=== PATIENT | female | born 1935 | race Caucasian/White ===

== ENCOUNTER 2017-02-02 20:15 | Outpatient (CLI) | payer MEDICARE, OTHER | END 2017-02-02 20:16 | disposition short-term general hospital (02) | LOC: EMS 20:15 | PROVIDERS: ATTEND Surgery | DX: R55 Syncope and collapse (principal); R42 Dizziness and giddiness; R20.2 Paresthesia of skin; S09.90XA Unspecified injury of head, initial encounter; W18.39XA Other fall on same level, initial encounter; Y92.009 Unspecified place in unspecified non-institutional (private) residence as the place of occurrence of the external cause | CPT/HCPCS: A0425; A0427 ==

== ENCOUNTER 2018-05-07 22:25 | Outpatient (CLI) | payer MEDICARE, OTHER | END 2018-05-07 22:26 | disposition short-term general hospital (02) | LOC: EMS 22:25 | PROVIDERS: ATTEND Surgery | DX: R07.9 Chest pain, unspecified (principal) | CPT/HCPCS: A0425; A0427 ==

== ENCOUNTER 2018-05-09 01:37 | Outpatient (CLI) | payer MEDICARE, OTHER | END 2018-05-09 01:38 | disposition critical access hospital (66) | LOC: EMS 01:37 | PROVIDERS: ATTEND Surgery | DX: R10.9 Unspecified abdominal pain (principal); M54.5 Low back pain; R11.0 Nausea | CPT/HCPCS: A0425; A0427 ==

== ENCOUNTER 2018-05-09 02:11 | Inpatient (IN) | payer MEDICARE, OTHER ==
[2018-05-09 03:03] LABS: BASOPHILS % (AUTO) 0.2 %; LYMPHOCYTES # (AUTO) 0.1 10^3/uL (1.5-3.5); MEAN CORPUSCULAR HEMOGLOBIN 31.6 pg (27.0-31.0); MEAN CORPUSCULAR HGB CONC 33.9 g/dL (32.0-36.0); MEAN CORPUSCULAR VOLUME 93.3 fL (81.0-99.0); MEAN PLATELET VOLUME 9.3 fL (7.9-10.8); MONOCYTES # (AUTO) 0.2 10^3/uL (0.0-1.0); MONOCYTES % (AUTO) 1.3 %; NEUTROPHILS # (AUTO) 13.4 10^3/uL (1.5-6.6); NEUTROPHILS % (AUTO) 97.5 %; PLT - PLATELET COUNT 189 10^3/uL (130-450); RED BLOOD COUNT 4.44 10^6/uL (4.20-5.40); RED CELL DISTRIBUTION WIDTH 13.3 % (12.0-15.0); WHITE BLOOD COUNT 13.7 x10^3/uL (4.8-10.8)
--- NOTE | 2018-05-09 03:08 | ED Physician Documentation ---
PD HPI ABD PAIN - Stated complaint Stated Complaint: ABD PAIN - Chief complaint Chief Complaint: Abd Pain - History obtained from History obtained from: Patient - History of Present Illness Timing - onset: How many days ago (2-3) Timing - duration: Days Timing - details: Abrupt onset, Waxing and waning Pain level max: 8 Pain level now: 2 Quality: Pain Location: RUQ, Epigastric Radiation: Upper back Improved by: Meds (fentanyl 50 mcg IV x 3 doses en route to ED, as well as zofran 4mg IV en route) Worsened by: Eating Associated symptoms: Nausea, Vomiting (vomiting developed after ED arrival). No: Fever, Diarrhea, Constipation, Dysuria Similar symptoms before: Work up / diagnostics (see below) Recently seen: Admitted - Additional information Additional information: Patient complains of epigastric pain for the past two or three days. She had not had this pain previously. The pain is distinctly worse with PO intake. Yesterday she was evaluated at [facility] in [place]. Per patients description, the evaluation was cardiac-oriented and included a treadmill stress test. The results were reportedly, per patient, unremarkable, and she was discharged earlier today. She says her pain was ongoing at time of d/c. tonight, she decided to try to eat a more substantial dinner then she had been (apprehensive due to increased pain with eating), and eating indeed again rapidly worsened her abdominal pain and called 911 for her severe pain. Dramatic improvement en route with meds by EMS as noted above Review of Systems Constitutional: reports: Reviewed and negative Eyes: reports: Reviewed and negative Ears: reports: Reviewed and negative Nose: reports: Reviewed and negative Throat: reports: Reviewed and negative Cardiac: reports: Reviewed and negative Respiratory: reports: Reviewed and negative GI: reports: Abdominal Pain, Nausea, Vomiting. denies: Constipation, Diarrhea : denies: Dysuria, Frequency Skin: reports: Reviewed and negative Musculoskeletal: reports: Reviewed and negative Neurologic: reports: Reviewed and negative PD PAST MEDICAL HISTORY - Past Medical History Past Medical History: Yes Cardiovascular: High cholesterol GI: GERD Other Past Medical History: Bladder CA, Skin CA - Past Surgical History Past Surgical History: Yes Ortho: Knee replacement - Present Medications Home Medications: Ambulatory Orders Medication Instructions Recorded Confirmed Calcium Carbonate [Calcium] 600 mg PO DAILY 05/09/18 05/09/18 Lovastatin 40 mg PO QPM 05/09/18 05/09/18 Multivitamin [Multiple Vitamins] 1 tab PO DAILY 05/09/18 05/09/18 - Allergies Allergies/Adverse Reactions: Allergies Allergy/AdvReac Type Severity Reaction Status Date / Time Penicillins Allergy Unknown Verified 05/09/18 02:23 epinephrine AdvReac Unknown Verified 05/09/18 02:23 lorazepam AdvReac Nausea Verified 05/09/18 02:23 meperidine AdvReac Nausea Verified 05/09/18 02:23 oxycodone AdvReac Nausea Verified 05/09/18 02:23 - Social History Does the pt smoke?: No Smoking Status: Never smoker Does the pt drink ETOH?: No Does the pt have substance abuse?: No - Immunizations Immunizations are current?: Yes - POLST Patient has POLST: No PD ED PE NORMAL - Vitals Vital signs reviewed: Yes - General General: Alert and oriented X 3, No acute distress, Well developed/nourished - HEENT HEENT: Moist mucous membranes - Cardiac Cardiac: RRR, No murmur - Respiratory Respiratory: No respiratory distress, Clear bilaterally - Abdomen Abdomen: Soft, Non distended, Other (TTP across upper abdomen, most pronounced epigastrium) - Derm Derm: Normal color, Warm and dry - Extremities Extremities: No edema Results - Vitals Vitals: Oxygen O2 Source Nasal cannula Oxygen Flow Rate 3 - Labs Labs: Laboratory Tests 05/09/18 05/09/18 05/09/18 02:56 02:56 03:48 WBC 13.7 H RBC 4.44 Hgb 14.0 Hct 41.4 MCV 93.3 MCH 31.6 H MCHC 33.9 RDW 13.3 Plt Count 189 MPV 9.3 Neut # (Auto) 13.4 H Lymph # (Auto) 0.1 L [place] # (Auto) 0.2 Eos # (Auto) 0.0 Baso # (Auto) 0.0 Absolute Nucleated RBC 0.01 Nucleated RBC % 0.1 Sodium 140 Potassium 3.3 L Chloride 104 Carbon Dioxide 23 Anion Gap 13.0 BUN 13 Creatinine 0.5 Estimated GFR (MDRD) 119 Glucose 159 H Calcium 8.7 Total Bilirubin 2.4 H AST 145 H ALT 86 H Alkaline Phosphatase 187 H Total Protein 7.0 Albumin 4.1 Globulin 2.9 Albumin/Globulin Ratio 1.4 Amylase 934 H* Lipase 1110 H Urine Color Urine Clarity Urine pH Ur Specific [place] Urine Protein Urine Glucose (UA) Urine Ketones Urine Occult Blood Urine Nitrite Urine Bilirubin Urine Urobilinogen Ur Leukocyte Esterase Urine RBC Urine WBC Ur Squamous Epith Cells Urine Bacteria Ur Microscopic Review Urine Culture Comments 05/09/18 05:40 WBC RBC Hgb Hct MCV MCH MCHC RDW Plt Count MPV Neut # (Auto) Lymph # (Auto) [place] # (Auto) Eos # (Auto) Baso # (Auto) Absolute Nucleated RBC Nucleated RBC % Sodium Potassium Chloride Carbon Dioxide Anion Gap BUN Creatinine Estimated GFR (MDRD) Glucose Calcium Total Bilirubin AST ALT Alkaline Phosphatase Total Protein Albumin Globulin Albumin/Globulin Ratio Amylase Lipase Urine Color YELLOW Urine Clarity CLEAR Urine pH 5.0 Ur Specific [place] 1.020 Urine Protein NEGATIVE Urine Glucose (UA) >=1000 H Urine Ketones 15 H Urine Occult Blood SMALL H Urine Nitrite NEGATIVE Urine Bilirubin NEGATIVE Urine Urobilinogen 0.2 (NORMAL) Ur Leukocyte Esterase NEGATIVE Urine RBC 6-10 H Urine WBC 0-3 Ur Squamous Epith Cells RARE Squamous Urine Bacteria None Seen Ur Microscopic Review INDICATED Urine Culture Comments NOT INDICATED - Rads (name of study) RUQ US Radiology: Prelim report reviewed, See rad report CT A/P Radiology: Prelim report reviewed, See rad report PD MEDICAL DECISION MAKING - ED course Complexity details: reviewed results, re-evaluated patient, considered differential, d/w patient, d/w family ED course: requested records multiple times from [place], but only received patient d/c instructions on first request and no further information faxed after two more requests for discharge summary or test results. D/W Dr. Caldera after US and blood tests; he requests CT A/P. After CT resulted, d/w Dr. Caldera, accepts to hospitalist service. Departure - Departure Disposition: 66 [facility] DC/Xfer Clinical Impression: Acute cholecystitis, Hyperbilirubinemia, Hypokalemia, Pancreatitis, gallstone Condition: Stable Discharge Date/Time: 05/09/18 07:09
[2018-05-09 03:25] LABS: ALBUMIN 4.1 g/dL (3.2-5.5); ALBUMIN/GLOBULIN RATIO 1.4 (1.0-2.2); BILIRUBIN,TOTAL 2.4 mg/dL (0.2-1.0); CALCIUM 8.7 mg/dL (8.5-10.3); CREATININE 0.5 mg/dL (0.4-1.0)
[2018-05-09] MEDS ORDERED: fentaNYL 100 MCG/2 ML VIAL IVP STA (03:41)
[2018-05-09] MEDS ORDERED: SODIUM CHLORIDE 0.9% 1,000 ML IV STA (03:41)
[2018-05-09] MEDS ORDERED: ONDANSETRON 4 MG/2 ML VIAL IVP STA ×2 (03:41→05:03)
--- NOTE | 2018-05-09 04:33 | Ultrasound Report ---
Reason: abd. pain Procedure Date: 05/09/2018 Accession Number: [id number] / [id number] Procedure: US - Abdomen Limited CPT Code: FULL RESULT: EXAM: ABDOMEN ULTRASOUND LIMITED, RUQ EXAM DATE: 05/09/2018 04:27 AM. CLINICAL HISTORY: Abd. pain. COMPARISON: None. TECHNIQUE: Real-time scanning was performed with static images obtained. FINDINGS: Liver: Normal in size and echotexture. 16.9 cm. Main portal vein flow: Hepatopetal. Gallbladder: Cholelithiasis is present. There is gallbladder wall thickening and positive sonographic Dunlap sign, compatible with acute cholecystitis. Biliary System: CBD measures 7 mm. No intrahepatic or extrahepatic ductal dilatation. Other: No right hydronephrosis. No free fluid. IMPRESSION: Cholelithiasis, with gallbladder wall thickening and localized tenderness, compatible with acute cholecystitis. RADIA
[2018-05-09] MEDS ORDERED: IOPAMIDOL-300 100 ML VIAL ONE (05:03)
[2018-05-09] MEDS ORDERED: MORPHINE 2 MG/ML CARPUJECT IVP STA (05:03)
[2018-05-09] MEDS ORDERED: IOPAMIDOL-300 100 ML VIAL IVP ONE (05:29)
--- NOTE | 2018-05-09 05:57 | CT Report ---
Reason: cholecystitis, abnormal LFTs/amylase/lipase Procedure Date: 05/09/2018 Accession Number: [id number] / [id number] Procedure: CT - Abdomen/Pelvis W/ CPT Code: FULL RESULT: EXAM: CT ABDOMEN AND PELVIS EXAM DATE: 05/09/2018 05:41 AM. CLINICAL HISTORY: Cholecystitis, abnormal LFTs/amylase/lipase. COMPARISONS: Ultrasound same day. TECHNIQUE: Routine helical CT imaging was performed through the abdomen and pelvis. IV contrast: ISOVUE 300 100mL. Enteric contrast: No. Reconstructions: Coronal and sagittal. In accordance with CT protocol optimization, one or more of the following dose reduction techniques were utilized for this exam: automated exposure control, adjustment of mA and/or KV based on patient size, or use of iterative reconstructive technique. FINDINGS: Lung Bases: Bibasilar atelectasis. Liver: Normal. No masses. Gallbladder/Bile Ducts: Para cholecystic inflammation, compatible with acute cholecystitis. Cholelithiasis. Spleen: Normal. Pancreas: Normal. Adrenal Glands: Normal. Kidneys: Parapelvic cysts. No hydronephrosis or nephrolithiasis. Peritoneal Cavity/Bowel: Normal. No free fluid, free air or adenopathy. No masses or acute inflammatory process. Pelvic Organs: Normal. The bladder and visualized pelvic organs are within normal limits. Vasculature: No aneurysms or other significant abnormality. Bones: No significant abnormality. Other: Small left inguinal hernia, containing a nonobstructed loop of bowel. Small right inguinal hernia, containing fat. IMPRESSION: Para cholecystic inflammation and cholelithiasis, compatible with acute cholecystitis. Bilateral inguinal hernias, the left containing a nonobstructed loop of bowel, and the right containing fat. RADIA
[2018-05-09 06:00] LABS: BILIRUBIN,URINE NEGATIVE (NEGATIVE); GLUCOSE, URINE (UA) >=1000 mg/dL (NEGATIVE); KETONES,URINE (UA) 15 mg/dL (NEGATIVE); LEUKOCYTE ESTERASE, URINE NEGATIVE (NEGATIVE); NITRITE,URINE NEGATIVE (NEGATIVE); OCCULT BLOOD,URINE SMALL (NEGATIVE); PROTEIN,URINE NEGATIVE (NEGATIVE); UROBILINOGEN,URINE 0.2 (NORMAL) E.U./dL (NORMAL)
[2018-05-09 06:02] LABS: CLARITY,URINE CLEAR (CLEAR)
[2018-05-09 06:07] LABS: BACTERIA,URINE None Seen /HPF (None Seen); SQUAMOUS EPITHELIAL CELL,UR RARE Squamous (<= Few)
[2018-05-09] MEDS ORDERED: PROMETHAZINE 25 MG/1 ML VIAL IM PRN (06:10)
[2018-05-09] MEDS ORDERED: ZOLPIDEM 5 MG TABLET PO PRN (06:10)
[2018-05-09] MEDS ORDERED: oxyCODONE 5 MG TABLET PO PRN ×2 (06:10)
[2018-05-09] MEDS ORDERED: ACETAMINOPHEN 325 MG TABLET PO PRN (06:10)
[2018-05-09] MEDS ORDERED: MORPHINE 2 MG/ML CARPUJECT IVP PRN ×2 (06:10→11:41)
--- NOTE | 2018-05-09 06:19 | HISTORY & PHYSICAL EXAMINATION ---
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 The patient states that her abdominal pain started about 3-4 days ago. She states that initially she was having epigastric abdominal pain that would be episodic and resolved on its own. She noted that it did occur after meals. She states that the pain then became constant and severe on Wednesday evening. At that time she states that she went to the emergency department at [facility]. She states that she was placed in observation overnight and had a full cardiac workup. She had a stress test and workup was negative. Despite the workup being negative she continued to have abdominal pain and states that she was having nausea and decreased appetite. She states that her son asked for them to do a scan of her abdomen but she was discharged later in the evening without any further testing. The patient states that upon returning home she continued to have severe abdominal pain. She states the pain was located in her epigastric area of the abdomen and radiated down into the both her right and left lower quadrant as well as to her back. She states that she continued to feel nauseated and has not eaten all day. She states finally she could not take the pain any longer and return to our emergency department here at [facility] early this morning. The patient also admits to chills but denies any fevers. She states that the pain became especially worse when she tried to eat earlier yesterday afternoon. She states the pain is a 10 out of 10 and constant. She describes it as a sharp pain. She states that nothing has made it better except for pain medication in the emergency department and even that only last for a short jessica od of time. Patient denies any headaches, blurred vision, runny nose, sore throat, nasal congestion, difficult to swallowing, chest pain, shortness of air, orthopnea, PND, cough, increased lower extremity swelling, diarrhea, constipation, urinary urgency, urinary frequency, dysuria, joint pain, joint swelling, neck stiffness, recent unintentional weight loss, polyuria, polydipsia, skin changes, skin rash, dizziness, lightheadedness, night sweats or any focal neurologic deficits. On presentation to the emergency department the patient was in a fair amount of distress as she was writhing in pain. She was tachycardic with a heart rate of 108 and hypertensive with a blood pressure of 165/78. She was afebrile. She was brought in by ambulance and was given fentanyl in route. Despite the fe ntanyl she continued to have pain when she presented to the emergency department and received additional doses of fentanyl and IV morphine. The patient's pain improved however the pain returned quickly after the medication was given. The patient underwent routine lab work which did reveal a leukocytosis of 13.7, hypokalemia with a potassium of 3.3, hyperglycemia with a blood glucose of 159, elevated total bilirubin with a bilirubin of 2.4, elevated AST, ALT and alk phos as well as an elevated amylase of 934 and lipase of 1110. The patient underwent a abdominal ultrasound which revealed cholelithiasis, with gallbladder wall thickening and localized tenderness compatible with acute cholecystitis. There was no evidence of common bile duct dilation. The patient then underwent a CT of her abdomen and pelvis which revealed pericholecystic inflammation and cholelithiasis compatible with acute cholecystitis but again no evidence of choledocholithiasis. The patient was admitted to the medical arceo for acute cholecystitis and gallstone pancreatitis. Cultures were obtained in the emergen cy department and patient is being started on IV antibiotics, IV fluids and will be made n.p.o. until she has a surgical consult. MRCP has also been ordered. History - Past Medical History Cardiovascular: reports: High cholesterol GI: reports: GERD MRSA Hx?: No Other Past Medical History: Bladder CA, Skin CA - Past Surgical History Ortho: reports: Knee replacement - Family & Social History Family History: Mother: (Mother and father were healthy and of old age. Father at 91 mother at 94), Father: , Sister: Cancer (Sister with lung cancer, son with non-Hodgkin's lymphoma and prostate cancer), Other family: Cancer, Diabetes, Type 2 (Son with diabetes) Living arrangement: At home Living Situation: With spouse/s.o. Social History Notes: The patient lives with her whom she is been to for 59 years in [place], [place]. The couple has been living on [facility] for 40 years. Her was a high school head coach in [place] until they moved to [facility] [place] to take care of her 's father. They have lived here ever since. She has 3 kids all boys. Her retired from the construction business. She has never smoked, she does not drink alcohol and denies any illicit drug use. - POLST Patient has POLST: No POLST Status: Full Code Meds/Allgy - Allergies Allergies/Adverse Reactions: Allergies Allergy/AdvReac Type Severity Reaction Status Date / Time Penicillins Allergy Unknown Verified 05/09/18 02:23 epinephrine AdvReac Unknown Verified 05/09/18 02:23 lorazepam AdvReac Nausea Verified 05/09/18 02:23 meperidine AdvReac Nausea Verified 05/09/18 02:23 oxycodone AdvReac Nausea Verified 05/09/18 02:23 Review of Systems - Other Findings Other Findings: A comprehensive review of systems was performed the pertinent positives and negatives are stated above in the HPI and the remainder of the review of systems is negative. Prior Level of Functionality: Completely independent with her activities of daily living. Exam - Vital Signs Reviewed Vital Signs: Yes Vital Signs: Vital Signs x48h Temp Pulse Resp BP Pulse Ox 05/09/18 04:29 110 H 135/67 H 95 05/09/18 02:13 37.3 C 108 H 16 165/78 H 92 - Physical Exam General Appearance: positive: Alert, Mild distress (Secondary to abdominal pain despite pain medication) Eyes Bilateral: positive: Normal inspection, PERRL, EOMI, No lid inflammation, Conjunctivae nml, No scleral icterus ENT: positive: ENT inspection nml, Pharynx nml, Dry mucous membranes. negative: Purulent nasal drainage, Pharyngeal erythema, Oral lesions Neck: positive: Nml inspection, Thyroid nml, No JVD, Trachea midline. negative: Thyromegaly, Lymphadenopathy (R), Lymphadenopathy (L), Stiff neck, Carotid bruit, Tracheal deviation Respiratory: positive: Chest non-tender, No respiratory distress, Breath sounds nml. negative: Wheezes, Rales, Rhonchi Cardiovascular: positive: Regular rate & rhythm, No murmur, No gallop Peripheral Pulses: positive: 2+ Abdomen: positive: No organomegaly, Nml bowel sounds, No distention, Tenderness (Diffuse tenderness significantly worse in the RUQ, without guarding or rebound, soft abd non distended). negative: Rebound, Hepatomegaly Back: positive: Nml inspection. negative: CVA tenderness (R), CVA tenderness (L) Skin: positive: Color nml, No rash, Warm, Dry. negative: Cyanosis, Diaphoresis, Pallor, Skin rash Extremities: positive: Non-tender, Full ROM, Nml appearance, No pedal edema Neurologic/Psychiatric: positive: Oriented x3, CN's nml (2-12), Motor nml, Sensation nml, Mood/affect nml Conclusion/Plan - Problem List (1) Acute cholecystitis Conclusion/Plan: The patient presented with abdominal pain in the epigastric area. She did have positive Dunlap sign. The ultrasound showed cholecystitis with gallstones. Lab work revealed pancreatitis and elevated bilirubin. CT and ultrasound of the abdomen did not reveal any common bile duct dilation. Patient being admitted for treatment of acute cholecystitis and pancreatitis. Bel[place] Plan: IV fluids IV antibiotics with ciprofloxacin and Flagyl N.p.o. IV Dilaudid for pain control IV Zofran for nausea control Surgical consult for likely cholecystectomy once pancreatitis improves. (2) Pancreatitis, gallstone Conclusion/Plan: Patient presented with abdominal pain with radiation to the back. Occurring for 4 days. She was hospitalized at [facility] and worked up for possible acute coronary syndrome with a stress test which was negative. She was discharged without any abdominal imaging. Imaging here shows: Acute cholecystitis with gallstones. The patient's lab work reveals elevated lipase and amylase suggesting pancreatitis. Given the patient's gallstones and ongoing acute cholecystitis it is very likely that the patient has gallstone pancreatitis. The ultrasound and CT do not show any common bile duct dilation or evidence of a bile common bile duct stone. Plan: N.p.o. IV fluids Surgical consult Monitor lipase and amylase Pain control Nausea control (3) Hyperbilirubinemia Conclusion/Plan: Patient presented with acute cholecystitis and pancreatitis also has elevated bilirubin and LFTs. CT and abdominal ultrasound do not show any common bile duct dilation or stone. Plan: MRCP Monitor LFTs (4) Hypokalemia Conclusion/Plan: Patient presented with acute cholecystitis and was found to have a potassium of 3.3. Patient will be given potassium replacement while she is hospitalized and will continue to monitor her potassium. (5) Hyperlipidemia Conclusion/Plan: Patient has a history of hyperlipidemia. We will check lipid profile and make sure she does not have hypertriglyceridemia given her pancreatitis. She will be n.p.o. and restarted on her statin after surgery. Qualifiers: Hyperlipidemia type: unspecified Qualified Code(s): E78.5 - Hyperlipidemia, unspecified (6) Hyperglycemia Conclusion/Plan: Patient had mild hyperglycemia on presentation with a blood glucose of 159. Patient does not have any history of diabetes. Likely her glucose is elevated due to stress response from ongoing infection and pancreatitis. We will check hemoglobin A1c and continue to monitor her glucose daily. - Lab Results Lab results reviewed: Yes Fish Bones: 05/09/18 02:56 05/09/18 02:56 Other Lab Results: Laboratory Results WBC 13.7 x10^3/uL (4.8-10.8) H 05/09/18 02:56 RBC 4.44 10^6/uL (4.20-5.40) 05/09/18 02:56 Hgb 14.0 g/dL (12.0-16.0) 05/09/18 02:56 Hct 41.4 % (37.0-47.0) 05/09/18 02:56 MCV 93.3 fL (81.0-99.0) 05/09/18 02:56 MCH 31.6 pg (27.0-31.0) H 05/09/18 02:56 MCHC 33.9 g/dL (32.0-36.0) 05/09/18 02:56 RDW 13.3 % (12.0-15.0) 05/09/18 02:56 Plt Count 189 10^3/uL (130-450) 05/09/18 02:56 MPV 9.3 fL (7.9-10.8) 05/09/18 02:56 Neut # (Auto) 13.4 10^3/uL (1.5-6.6) H 05/09/18 02:56 Lymph # (Auto) 0.1 10^3/uL (1.5-3.5) L 05/09/18 02:56 [place] # (Auto) 0.2 10^3/uL (0.0-1.0) 05/09/18 02:56 Eos # (Auto) 0.0 10^3/uL (0.0-0.7) 05/09/18 02:56 Baso # (Auto) 0.0 10^3/uL (0.0-0.1) 05/09/18 02:56 Absolute Nucleated RBC 0.01 x10^3/uL 05/09/18 02:56 Nucleated RBC % 0.1 /100WBC 05/09/18 02:56 Sodium 140 mmol/L (135-145) 05/09/18 02:56 Potassium 3.3 mmol/L (3.5-5.0) L 05/09/18 02:56 Chloride 104 mmol/L (101-111) 05/09/18 02:56 Carbon Dioxide 23 mmol/L (21-32) 05/09/18 02:56 Anion Gap 13.0 (6-13) 05/09/18 02:56 BUN 13 mg/dL (6-20) 05/09/18 02:56 Creatinine 0.5 mg/dL (0.4-1.0) 05/09/18 02:56 Estimated GFR (MDRD) 119 (>89) 05/09/18 02:56 Glucose 159 mg/dL (70-100) H 05/09/18 02:56 Calcium 8.7 mg/dL (8.5-10.3) 05/09/18 02:56 Total Bilirubin 2.4 mg/dL (0.2-1.0) H 05/09/18 02:56 AST 145 IU/L (10-42) H 05/09/18 02:56 ALT 86 IU/L (10-60) H 05/09/18 02:56 Alkaline Phosphatase 187 IU/L (42-121) H 05/09/18 02:56 Total Protein 7.0 g/dL (6.7-8.2) 05/09/18 02:56 Albumin 4.1 g/dL (3.2-5.5) 05/09/18 02:56 Globulin 2.9 g/dL (2.1-4.2) 05/09/18 02:56 Albumin/Globulin Ratio 1.4 (1.0-2.2) 05/09/18 02:56 Amylase 934 U/L (28-100) H* 05/09/18 03:48 Lipase 1110 U/L (22-51) H 05/09/18 02:56 Urine Color YELLOW 05/09/18 05:40 Urine Clarity CLEAR (CLEAR) 05/09/18 05:40 Urine pH 5.0 PH (5.0-7.5) 05/09/18 05:40 Ur Specific [place] 1.020 (1.002-1.030) 05/09/18 05:40 Urine Protein NEGATIVE mg/dL (NEGATIVE) 05/09/18 05:40 Urine Glucose (UA) >=1000 mg/dL (NEGATIVE) H 05/09/18 05:40 Urine Ketones 15 mg/dL (NEGATIVE) H 05/09/18 05:40 Urine Occult Blood SMALL (NEGATIVE) H 05/09/18 05:40 Urine Nitrite NEGATIVE (NEGATIVE) 05/09/18 05:40 Urine Bilirubin NEGATIVE (NEGATIVE) 05/09/18 05:40 Urine Urobilinogen 0.2 (NORMAL) E.U./dL (NORMAL) 05/09/18 05:40 Ur Leukocyte Esterase NEGATIVE (NEGATIVE) 05/09/18 05:40 Urine RBC 6-10 /HPF (0-5) H 05/09/18 05:40 Urine WBC 0-3 /HPF (0-5) 05/09/18 05:40 Ur Squamous Epith Cells RARE Squamous (<= Few) 05/09/18 05:40 Urine Bacteria None Seen /HPF (None Seen) 05/09/18 05:40 Ur Microscopic Review INDICATED 05/09/18 05:40 Urine Culture Comments NOT INDICATED 05/09/18 05:40 - Diagnostic Imaging Results Diagnostic Imaging Results: positive: Final report reviewed Diagnostic Imaging Results Comments: EXAM: [id number] US/ABDLTD ([id number]) Reason: abd. pain Procedure Date: 05/09/2018 Accession Number: [id number] / [id number] Procedure: US - Abdomen Limited CPT Code: FULL RESULT: EXAM: ABDOMEN ULTRASOUND LIMITED, RUQ EXAM DATE: 05/09/2018 04:27 AM. CLINICAL HISTORY: Abd. pain. COMPARISON: None. TECHNIQUE: Real-time scanning was performed with static images obtained. FINDINGS: Liver: Normal in size and echotexture. 16.9 cm. Main portal vein flow: Hepatopetal. Gallbladder: Cholelithiasis is present. There is gallbladder wall thickening and positive sonographic Dunlap sign, compatible with acute cholecystitis. Biliary System: CBD measures 7 mm. No intrahepatic or extrahepatic ductal dilatation. Other: No right hydronephrosis. No free fluid. IMPRESSION: Cholelithiasis, with gallbladder wall thickening and localized tenderness, compatible with acute cholecystitis. CT abdomen/pelvis Impression: Pericholecystic inflammation and cholelithiasis, compatible with acute cholecystitis. Bilateral inguinal hernias, the left containing a nonobstructed loop of bowel, and the right containing fat. - EKG Results EKG Interpreted Independently: Yes Core Measures - Anticipated LOS I expect patient to be DC'd or transferred within 96 hours.: Yes - DVT/VTE - Prophylaxis VTE/DVT Prophylaxis med ordered at admit?: Yes
[2018-05-09] MEDS ORDERED: CIPROFLOXACIN 400 MG/200 ML 200 ML IV SCH (07:00)
[2018-05-09] MEDS: HYDROmorphone 1 MG/ML CARPUJECT IVP PRN ×2 (08:08→10:39)
[2018-05-09] MEDS: NS W/20 MEQ KCL 1,000 ML IV SCH ×2 (08:22→19:23)
[2018-05-09] MEDS: metroNIDAZOLE 500 MG/100 ML 500 MG/100 ML BAG IV SCH ×3 (08:22→22:54)
[2018-05-09] MEDS: SODIUM CHLORIDE FLUSH 0.9% 10 ML SYRINGE IVP SCH ×3 (08:29→23:17)
[2018-05-09] MEDS: POLYETHYLENE GLYCOL 3350 17 GM PACKET PO SCH (08:29)
[2018-05-09] MEDS: ENOXAPARIN 40 MG/0.4 ML SYRINGE SUBQ SCH (09:36)
[2018-05-09] MEDS: FAMOTIDINE 20 MG/50 ML 50 ML IV SCH ×2 (09:40→20:09)
[2018-05-09] MEDS: CIPROFLOXACIN 400 MG/200 ML 200 ML IV SCH ×2 (10:24→21:38)
[2018-05-09] MEDS: ONDANSETRON 4 MG/2 ML VIAL IVP PRN (10:39)
[2018-05-09] MEDS: PROCHLORPERAZINE 10 MG/2 ML VIAL IVP PRN (12:49)
[2018-05-09] MEDS: SODIUM CHLORIDE FLUSH 0.9% 10 ML SYRINGE IVP PRN (12:50)
--- NOTE | 2018-05-09 12:52 | PROVIDER PROGRESS NOTE ---
Subjective - Prog Note Date Prog Note Date: 05/09/18 - Subjective Pt reports feeling: Improved Subjective: pt report her pain is most controlled by medication, she report mild nausea but no vomiting. She denies fever, chill, chest pain, shortness of breath. Current Medications - Current Medications Current Medications: Active Medications Acetaminophen (Tylenol) 650 mg PO Q4HR PRN PRN Reason: Pain 1 to 4 Enoxaparin Sodium (Lovenox) 40 mg SUBQ DAILY [facility] Last Admin: 05/09/18 09:36 Dose: Not Given Famotidine (Pepcid 20 Mg/50 Ml) 50 mls @ 100 mls/hr IV BID [facility] Last Infusion: 05/09/18 10:10 Dose: Infused Metronidazole (Flagyl 500 Mg/100 Ml) 500 mg in 100 mls @ 100 mls/hr IV Q8H [facility] Last Infusion: 05/09/18 09:22 Dose: Infused Potassium Chloride/Sodium Chloride (Normal Saline 0.9% W/20 Meq Kcl) 1,000 mls @ 150 mls/hr IV .Q6H40M [facility] Stop: 05/09/18 20:19 Last Infusion: 05/09/18 10:21 Dose: 0 mls/hr Ciprofloxacin (Cipro 400 Mg/200 Ml) 200 mls @ 200 mls/hr IV Q12H [facility] Last Infusion: 05/09/18 12:34 Dose: 200 mls/hr Morphine Sulfate (Morphine (Carpuject)) 2 mg IVP Q2HR PRN PRN Reason: PAIN Ondansetron HCl (Zofran Inj) 4 mg IVP Q6HR PRN PRN Reason: Nausea / Vomiting Last Admin: 05/09/18 10:39 Dose: 4 mg Polyethylene Glycol (Miralax) 17 gm PO DAILY [facility] Last Admin: 05/09/18 08:29 Dose: Not Given Prochlorperazine Edisylate (Compazine Inj) 10 mg IVP Q6HR PRN PRN Reason: Nausea / Vomiting Last Admin: 05/09/18 12:49 Dose: 10 mg Promethazine HCl (Phenergan Inj) 25 mg IM Q6HR PRN PRN Reason: Nausea / Vomiting Sodium Chloride (Normal Saline Flush 0.9%) 10 ml IVP PRN PRN PRN Reason: NEEDED PER PROVIDER ORDERS Last Admin: 05/09/18 12:50 Dose: 10 ml Sodium Chloride (Normal Saline Flush 0.9%) 10 ml IVP 0100,0900,1700 [facility] Last Admin: 05/09/18 08:29 Dose: Not Given Zolpidem Tartrate (Ambien) 5 mg PO QPM PRN PRN Reason: Insomnia Objective - Vital Signs/Intake & Output Reviewed Vital Signs: Yes Vital Signs: Vital Signs x48h Temp Pulse Pulse Resp BP BP Pulse Ox 05/09/18 07:27 37.1 C 108 H 20 134/96 H 97 05/09/18 06:44 36.4 C L 111 H 17 142/73 H 92 Intake & Output: Intake & Output 05/07/18 05/08/18 05/08/18 05/09/18 00:59 00:59 23:59 23:59 Intake Total 1131.667 Balance 1131.667 - Objective General Appearance: positive: No acute distress, Alert. negative: Lethargic Eyes Bilateral: positive: Normal inspection, PERRL, No lid inflammation, Conjunctivae nml ENT: positive: ENT inspection nml, Pharynx nml, No signs of dehydration. negative: Purulent nasal drainage, Pharyngeal erythema, Oral lesions Neck: positive: Nml inspection, Thyroid nml, No JVD, Trachea midline. negative: Thyromegaly, Lymphadenopathy (R), Lymphadenopathy (L), Stiff neck, Swelling/bruising, Tracheal deviation Respiratory: positive: Chest non-tender, No respiratory distress, Breath sounds nml. negative: Wheezes, Rales, Rhonchi Cardiovascular: positive: Regular rate & rhythm, No murmur, No gallop. negative: Irregularly irregular, Extrasystoles, Tachycardia, Bradycardia, JVD present, Systolic murmur, Diastolic murmur Peripheral Pulses: 2+ Radial (R), 2+ Radial (L), 2+ Dorsalis pedis (R), 2+ Dorsalis pedis (L) Abdomen: positive: No organomegaly, Nml bowel sounds, No distention, Tenderness. negative: Guarding, Rebound Back: positive: Nml inspection. negative: CVA tenderness (R), CVA tenderness (L) Skin: positive: Color nml, No rash, Warm, Dry. negative: Cyanosis, Diaphoresis, Pallor Extremities: positive: Non-tender, Full ROM, Nml appearance. negative: Calf t enderness, Joint swelling, Andrew's sign/cords Neurologic/Psychiatric: positive: Oriented x3, Motor nml, Sensation nml, Mood/affect nml. negative: Weakness, Sensory loss, Facial droop, Slurred/abnml speech, Depressed mood/affect - Lab Results Fish Bones: 05/09/18 02:56 05/09/18 02:56 Other Labs: Lab Results x24hrs 05/09/18 05/09/18 05/09/18 Range/Units 05:40 03:48 02:56 WBC (4.8-10.8) x10^3/uL RBC (4.20-5.40) 10^6/uL Hgb (12.0-16.0) g/dL Hct (37.0-47.0) % MCV (81.0-99.0) fL MCH (27.0-31.0) pg MCHC (32.0-36.0) g/dL RDW (12.0-15.0) % Plt Count (130-450) 10^3/uL MPV (7.9-10.8) fL Neut # (Auto) (1.5-6.6) 10^3/uL Lymph # (Auto) (1.5-3.5) 10^3/uL [place] # (Auto) (0.0-1.0) 10^3/uL Eos # (Auto) (0.0-0.7) 10^3/uL Baso # (Auto) (0.0-0.1) 10^3/uL Absolute Nucleated RBC x10^3/uL Nucleated RBC % /100WBC Sodium 140 (135-145) mmol/L Potassium 3.3 L (3.5-5.0) mmol/L Chloride 104 (101-111) mmol/L Carbon Dioxide 23 (21-32) mmol/L Anion Gap 13.0 (6-13) BUN 13 (6-20) mg/dL Creatinine 0.5 (0.4-1.0) mg/dL Estimated GFR (MDRD) 119 (>89) Glucose 159 H (70-100) mg/dL Calcium 8.7 (8.5-10.3) mg/dL Total Bilirubin 2.4 H (0.2-1.0) mg/dL AST 145 H (10-42) IU/L ALT 86 H (10-60) IU/L Alkaline Phosphatase 187 H (42-121) IU/L Total Protein 7.0 (6.7-8.2) g/dL Albumin 4.1 (3.2-5.5) g/dL Globulin 2.9 (2.1-4.2) g/dL Albumin/Globulin Ratio 1.4 (1.0-2.2) Amylase 934 H* (28-100) U/L Lipase 1110 H (22-51) U/L Urine Color YELLOW Urine Clarity CLEAR (CLEAR) Urine pH 5.0 (5.0-7.5) PH Ur Specific [place] 1.020 (1.002-1.030) Urine Protein NEGATIVE (NEGATIVE) mg/dL Urine Glucose (UA) >=1000 H (NEGATIVE) mg/dL Urine Ketones 15 H (NEGATIVE) mg/dL Urine Occult Blood SMALL H (NEGATIVE) Urine Nitrite NEGATIVE (NEGATIVE) Urine Bilirubin NEGATIVE (NEGATIVE) Urine Urobilinogen 0.2 (NORMAL) (NORMAL) E.U./dL Ur Leukocyte Esterase NEGATIVE (NEGATIVE) Urine RBC 6-10 H (0-5) /HPF Urine WBC 0-3 (0-5) /HPF Ur Squamous Epith Cells RARE Squamous (<= Few) Urine Bacteria None Seen (None Seen) /HPF Ur Microscopic Review INDICATED Urine Culture Comments NOT INDICATED 05/09/18 Range/Units 02:56 WBC 13.7 H (4.8-10.8) x10^3/uL RBC 4.44 (4.20-5.40) 10^6/uL Hgb 14.0 (12.0-16.0) g/dL Hct 41.4 (37.0-47.0) % MCV 93.3 (81.0-99.0) fL MCH 31.6 H (27.0-31.0) pg MCHC 33.9 (32.0-36.0) g/dL RDW 13.3 (12.0-15.0) % Plt Count 189 (130-450) 10^3/uL MPV 9.3 (7.9-10.8) fL Neut # (Auto) 13.4 H (1.5-6.6) 10^3/uL Lymph # (Auto) 0.1 L (1.5-3.5) 10^3/uL [place] # (Auto) 0.2 (0.0-1.0) 10^3/uL Eos # (Auto) 0.0 (0.0-0.7) 10^3/uL Baso # (Auto) 0.0 (0.0-0.1) 10^3/uL Absolute Nucleated RBC 0.01 x10^3/uL Nucleated RBC % 0.1 /100WBC Sodium (135-145) mmol/L Potassium (3.5-5.0) mmol/L Chloride (101-111) mmol/L Carbon Dioxide (21-32) mmol/L Anion Gap (6-13) BUN (6-20) mg/dL Creatinine (0.4-1.0) mg/dL Estimated GFR (MDRD) (>89) Glucose (70-100) mg/dL Calcium (8.5-10.3) mg/dL Total Bilirubin (0.2-1.0) mg/dL AST (10-42) IU/L ALT (10-60) IU/L Alkaline Phosphatase (42-121) IU/L Total Protein (6.7-8.2) g/dL Albumin (3.2-5.5) g/dL Globulin (2.1-4.2) g/dL Albumin/Globulin Ratio (1.0-2.2) Amylase (28-100) U/L Lipase (22-51) U/L Urine Color Urine Clarity (CLEAR) Urine pH (5.0-7.5) PH Ur Specific [place] (1.002-1.030) Urine Protein (NEGATIVE) mg/dL Urine Glucose (UA) (NEGATIVE) mg/dL Urine Ketones (NEGATIVE) mg/dL Urine Occult Blood (NEGATIVE) Urine Nitrite (NEGATIVE) Urine Bilirubin (NEGATIVE) Urine Urobilinogen (NORMAL) E.U./dL Ur Leukocyte Esterase (NEGATIVE) Urine RBC (0-5) /HPF Urine WBC (0-5) /HPF Ur Squamous Epith Cells (<= Few) Urine Bacteria (None Seen) /HPF Ur Microscopic Review Urine Culture Comments ABX Reporting Has patient been on IV antibiotics over the past 48 hours?: Yes Assessment/Plan - Problem List (1) Acute cholecystitis Impression: (1) Acute cholecystitis pt report her pain most controlled will followup surgeon continue IV fluids, antibiotics with ciprofloxacin and Flagyl N.p.o. IV Morphine for pain control, pt complaint nausea for Dilaudid continue IV Zofran for nausea control (2) Pancreatitis, gallstone Conclusion/Plan: continue N.p.o., IV fluids Surgical consult, follow up continue Monitor lipase and amylase continue Pain control continue Nausea control with antiemesis (3) Hyperbilirubinemia Conclusion/Plan: MRCP is pending, to see if stone is in common bile duck continue Monitor LFTs (4) Hypokalemia Conclusion/Plan: replacement of potassium. continue lab monitor (5) Hyperlipidemia Conclusion/Plan: order Lipid panel, to check hypertriglyceridemia level if it is the cause of pancreatitis continue n.p.o. and restarted on her statin after surgery. (6) Hyperglycemia Conclusion/Plan: Likely her glucose is elevated due to stress response from ongoing infection and pancreatitis. hemoglobin A1c is pending, and continue to monitor her glucose daily.
[2018-05-09] MEDS ORDERED: POTASSIUM CHLOR 20 MEQ/100 ML 20 MEQ/100 ML BAG IV ONE (13:21)
--- NOTE | 2018-05-09 13:41 | MRI Report ---
Reason: Cholecystitis w elev bili concern for CBD stone Procedure Date: 05/09/2018 Accession Number: [id number] / [id number] Procedure: MRI - MRCP W/O CPT Code: FULL RESULT: EXAM: MR ABDOMEN WITHOUT CONTRAST (MR CHOLANGIOPANCREATOGRAPHY) EXAM DATE: 05/09/2018 12:40 PM. CLINICAL HISTORY: Cholecystitis with elevated bilirubin concern for CBD stone. COMPARISON: ABDOMEN/PELVIS W/ 05/09/2018 5:29 AM ABDOMEN LIMITED 05/09/2018 4:56 AM. TECHNIQUE: Multiplanar breath-hold T1 and T2 sequences obtained through the abdomen on an MR scanner. Dedicated 2D and 3D MRCP sequences obtained through the biliary and pancreatic ducts. No intravenous contrast given. FINDINGS: Lung Bases: The lung bases are clear. Liver: Liver demonstrates normal caliber biliary ducts and periportal edema. Small amount of perihepatic ascites. CBD: The extrahepatic ducts appear normal. The CBD is 8 mm in diameter. Gallbladder: The gallbladder is hydropic, contains large calculi and demonstrates pericholecystic fluid. Pancreas: The pancreas appears normal with no mass. The pancreatic duct measures 2.5 mm in diameter and appears normal with no stone or stricture. Spleen: The spleen appears normal. Kidneys and Adrenals: The kidneys appear normal with no mass or hydronephrosis. There are parapelvic simple cysts in the kidneys. The adrenals appear normal. Bowel: The small bowel and colon appear normal with no inflammation or obstruction. Retroperitoneum: The retroperitoneal structures appear normal with no mass or lymphadenopathy. IMPRESSION: Cholecystitis without choledocholithiasis. RADIA
[2018-05-09] MEDS: POTASSIUM CHLOR 10 MEQ/100 ML 10 MEQ/100 ML BAG IV SCH ×2 (13:55→15:19)
--- NOTE | 2018-05-09 22:49 | Ultrasound Report ---
Reason: hematuria, flank pain Procedure Date: 05/09/2018 Accession Number: [id number] / [id number] Procedure: US - Retroperitoneal CPT Code: FULL RESULT: EXAM: RENAL ULTRASOUND. EXAM DATE: 05/09/2018 09:44 PM. CLINICAL HISTORY: Hematuria, flank pain. COMPARISON: Abdomen/pelvis with 05/09/2018 5:29 AM, MRCP without 05/09/2018 11:11 AM. TECHNIQUE: Real-time scanning was performed with static images obtained. FINDINGS: Right Kidney: 10.1 x 5.2 x 5.3 cm. Renal cortical thickness and echotexture appear within normal limits. There appear to be small parapelvic renal cysts. No definite hydronephrosis. Left Kidney: 11 x 5.5 x 5.3 cm. Renal cortical thickness and echotexture appear within normal limits. Multiple parapelvic renal cyst. No definite hydronephrosis. Bladder: Bilateral jets not seen. The prevoid bladder volume was 44.4 cc. The postvoid bladder volume was not obtained. IMPRESSION: There appear to be bilateral parapelvic renal cysts, left greater than right. No definite hydronephrosis. RADIA
--- NOTE | 2018-05-09 23:31 | CONSULTATION NOTE ---
Referring Provider Name of Referring Provider:: Dr. Hi Caldera Consult Date: 05/09/18 Chief Complaint - Chief Complaint Chief Complaint: New onset severe RUQ postprandial pain History of Present Illness - Admitted From Admitted From:: [facility] ED - History Obtained From Records Reviewed: Yes History obtained from: Patient primarily, chart Exam Limitations: None - History of Present Illness HPI Comment/Other: The patient is an exceedingly pleasant 82-year-old female evaluated in room 2206 at [facility]'s MedSurg unit at the request of Dr. Hi Caldera. The presumptive diagnosis is gallstone pancreatitis. Dr. Caldera's history and physical, which I reviewed, is exceedingly complete. The patient states that the pain started 3-4 days ago and was definitely postprandial and was worsened by eating. She went to [facility] in [place] where they performed an extensive cardiac workup and per the patient did not evaluate her abdominal symptoms at all. She was sent home where the pain persisted. Her son who is a medical rep told her repeatedly that he thought the pain was gallbladder in origin. When the patient came into our emergency department she states that we were "on it." The diagnosis of gallstone pancreatitis was confirmed with labs and x-rays and the patient was admitted to the hospital to have her pancreatitis cool off prior to her cholecystectomy. She does not have any other obvious causes for pancreatitis. Nausea accompanies her pain and the pain got to the point where she was "scared of eating." History - Past Medical History Cardiovascular: reports: High cholesterol Neuro: reports: Other GI: reports: GERD MRSA Hx?: No Other Past Medical History: Bladder CA, Skin CA - Past Surgical History Ortho: reports: Knee replacement - Family & Social History Family History: Mother: (Mother and father were healthy and of old age. Father at 91 mother at 94), Father: , Sister: Cancer (Sister with lung cancer, son with non-Hodgkin's lymphoma and prostate cancer), Other family: Cancer, Diabetes, Type 2 (Son with diabetes) Living arrangement: At home Living Situation: With spouse/s.o. Social History Notes: The patient lives with her whom she is been to for 59 years in [place], [place]. The couple has been living on [facility] for 40 years. Her was a high school agile coach in [place] until they moved to [facility] to take care of her 's father. They have lived here ever since. She has 3 kids all boys. Her retired from the construction business. She has never smoked, she does not drink alcohol and denies any illicit drug use. - POLST Patient has POLST: No POLST Status: Full Code Meds/Allgy - Home Medications Home Medications: Ambulatory Orders Medication Instructions Recorded Confirmed Calcium Carbonate [Calcium] 600 mg PO DAILY 05/09/18 05/09/18 Lovastatin 40 mg PO QPM 05/09/18 05/09/18 Multivitamin [Multiple Vitamins] 1 tab PO DAILY 05/09/18 05/09/18 - Allergies Allergies/Adverse Reactions: Allergies Allergy/AdvReac Type Severity Reaction Status Date / Time Penicillins Allergy Unknown Verified 05/09/18 02:23 epinephrine AdvReac Unknown Verified 05/09/18 02:23 lorazepam AdvReac Nausea Verified 05/09/18 02:23 meperidine AdvReac Nausea Verified 05/09/18 02:23 oxycodone AdvReac Nausea Verified 05/09/18 02:23 Exam - Vital Signs Reviewed Vital Signs: Yes Vital Signs: Vital Signs x48h Temp Pulse Resp BP Pulse Ox 05/09/18 15:50 36.9 C 107 H 16 119/58 L 94 - Physical Exam General Appearance: positive: No acute distress Eyes Bilateral: positive: No lid inflammation, Conjunctivae nml, No scleral icterus ENT: positive: No signs of dehydration Neck: positive: Trachea midline Respiratory: positive: Chest non-tender, No respiratory distress, Breath sounds nml Cardiovascular: positive: Regular rate & rhythm Abdomen: positive: Tenderness (Very minimal and epigastric and right upper quadrant in location) Skin: positive: Color nml Extremities: positive: Non-tender, Nml appearance Neurologic/Psychiatric: positive: Oriented x3 Conclusion/Plan - Diagnosis Diagnosis: Gallstone pancreatitis - Plan Plan: Laparoscopic cholecystectomy, possible open cholecystectomy, possible intraoperative cholangiogran, possible common bile duct exploration. The indications, procedure, alternatives including no surgery, ingestion of Actigall, possible risks including infection (deep or superficial), bleeding requiring transfusion (with all of its risks), common bile duct injury requring repair and additional surgery, and were fully explained to the patient and all questions answered. I also explained the pathophysiology. I explained that following the surgery I did not want her lifting anything over 15 pounds for 6 weeks to allow for optimal healing and to decrease the likelihood that a hernia would occur. All questions were fully answered. Verbal and written consent was obtained. The patient, in preparation for surgery will be nothing by mouth, and receive 2 gm of Cephalexin with induction. I asked her to contact me with any surgical questions and her concerns and she stated that she would. I asked her to let me know if there is any way we can make her stay at [facility] more comfortable and she stated that she would let me know. The plan is to do this operation and if everything goes well to discharge her home following the procedure. 45 minutes of [id number] time spent with the patient, over 80% in discussion, coordination of her care, and completion of the requisite paperwork Dragon disclaimer: This document was created in part using voice recognition technology. Because of the inherent limitations of the system ([employer]'s Dragon Dictate user manual states that the licensee understands that speech recognition is a statistical process and that recognition errors are inherent in the process), occasional same sounding word substitutions and grammatical errors do occur and persist despite proofreading. Please read this document for context. - Lab Results Lab results reviewed: Yes Fish Bones: 05/09/18 02:56 05/09/18 02:56 - Diagnostic Imaging Results Diagnostic Imaging Results: positive: Final report reviewed Diagnostic Imaging Results Comments: MRCP shows a normal common bile duct without obstruction or stone.
[2018-05-10 05:45] LABS: BASOPHILS % (AUTO) 0.5 %; HGB - HEMOGLOBIN 11.5 g/dL (12.0-16.0); LYMPHOCYTES # (AUTO) 0.3 10^3/uL (1.5-3.5); LYMPHOCYTES % (AUTO) 3.9 %; MEAN CORPUSCULAR HEMOGLOBIN 32.1 pg (27.0-31.0); MEAN CORPUSCULAR HGB CONC 34.2 g/dL (32.0-36.0); MEAN PLATELET VOLUME 9.3 fL (7.9-10.8); MONOCYTES # (AUTO) 0.4 10^3/uL (0.0-1.0); MONOCYTES % (AUTO) 4.9 %; NEUTROPHILS # (AUTO) 8.1 10^3/uL (1.5-6.6); NEUTROPHILS % (AUTO) 90.7 %; PLT - PLATELET COUNT 151 10^3/uL (130-450); RED BLOOD COUNT 3.58 10^6/uL (4.20-5.40); RED CELL DISTRIBUTION WIDTH 13.5 % (12.0-15.0); WHITE BLOOD COUNT 8.9 x10^3/uL (4.8-10.8)
[2018-05-10 05:50] LABS: INR 1.5 (0.8-1.2)
[2018-05-10 05:57] LABS: HB2 TOTAL 11.6 g/dL; HEMOGLOBIN A1C 0.44 g/dL; HEMOGLOBIN A1C % 5.6 % (4.6-6.2)
[2018-05-10 06:08] LABS: ALBUMIN 3.1 g/dL (3.2-5.5); ALBUMIN/GLOBULIN RATIO 1.2 (1.0-2.2); BILIRUBIN,TOTAL 1.6 mg/dL (0.2-1.0); CALCIUM 8.3 mg/dL (8.5-10.3); CREATININE 0.6 mg/dL (0.4-1.0); PHOSPHORUS 2.3 mg/dL (2.5-4.6); TOTAL PROTEIN 5.6 g/dL (6.7-8.2)
[2018-05-10 06:09] LABS: CHOL/HDL RATIO 1.9 (<4.4); CHOLESTEROL 106 mg/dL; HDL CHOLESTEROL 56 mg/dL; LDL CHOLESTEROL,CALCULATED 37 mg/dL; LDL/HDL RATIO 0.7 (<4.4); VLDL CHOLESTEROL 13 mg/dL
[2018-05-10] MEDS: metroNIDAZOLE 500 MG/100 ML 500 MG/100 ML BAG IV SCH ×3 (06:27→23:04)
[2018-05-10] MEDS: SODIUM CHLORIDE FLUSH 0.9% 10 ML SYRINGE IVP PRN (06:27)
[2018-05-10] MEDS ORDERED: BUPIVACAINE 0.5% PF 30 ML VIAL ONE ×2 (07:58→10:08)
[2018-05-10] MEDS: FAMOTIDINE 20 MG/50 ML 50 ML IV SCH ×2 (09:38→21:23)
--- NOTE | 2018-05-10 09:54 | ANESTHESIA ---
Pre-Anesthesia VS, & Labs - Diagnosis Diagnosis Gallstone pancreatitis - Procedure [place] cholecystectomy Vital Signs: Temp Pulse Resp BP Pulse Ox 37.1 C 120 H 18 130/69 94 05/10/18 08:00 05/10/18 08:00 05/10/18 08:00 05/10/18 08:00 05/10/18 08:00 Height 5 ft 4 in Weight (kg) 52.5 kg Body Mass Index 19.8 - NPO >8 hours Last Fluid Intake: ice chips at 0330 - Is Patient ?: No - Lab Results Current Lab Results: Laboratory Tests 05/10/18 05:35: Triglycerides 66, Cholesterol 106, LDL Cholesterol, Calc 37, VLD L Cholesterol 13, HDL Cholesterol 56 L, LDL/HDL Ratio 0.7, Cholesterol/HDL Ratio 1.9 05/10/18 05:35: Glycated Hemoglobin 5.6, Estim Average Glucose 114 H 05/10/18 05:35: Lactic Acid < 0.3 L 05/10/18 05:35: Lactate Dehydrogenase 136 05/10/18 05:35: Sodium 138, Potassium 4.0, Chloride 107, Carbon Dioxide 25, Anion Gap 6.0, BUN 18, Creatinine 0.6, Estimated GFR (MDRD) 96, Glucose 106 H, Calcium 8.3 L, Phosphorus 2.3 L, Magnesium 2.0, Total Bilirubin 1.6 H, AST 52 H, ALT 55, Alkaline Phosphatase 126 H, Total Protein 5.6 L, Albumin 3.1 L, Globulin 2.5, Albumin/Globulin Ratio 1.2, Amylase 124 H, Lipase 48 05/10/18 05:35: PT 17.0 H, INR 1.5 H 05/10/18 05:35: WBC 8.9, RBC 3.58 L, Hgb 11.5 L, Hct 33.6 L, MCV 94.0, MCH 32.1 H, MCHC 34.2, RDW 13.5, Plt Count 151, MPV 9.3, Neut # (Auto) 8.1 H, Lymph # (Auto) 0.3 L, Rhea # (Auto) 0.4, Eos # (Auto) 0.0, Baso # (Auto) 0.0, Absolute Nucleated RBC 0.00, Nucleated RBC % 0.0 05/09/18 03:48: Amylase 934 H* 05/09/18 02:56: Sodium 140, Potassium 3.3 L, Chloride 104, Carbon Dioxide 23, Anion Gap 13.0, BUN 13, Creatinine 0.5, Estimated GFR (MDRD) 119, Glucose 159 H, Calcium 8.7, Total Bilirubin 2.4 H, AST 145 H, ALT 86 H, Alkaline Phosphatase 187 H, Total Protein 7.0, Albumin 4.1, Globulin 2.9, Albumin/Globulin Ratio 1.4, Lipase 1110 H 05/09/18 02:56: WBC 13.7 H, RBC 4.44, Hgb 14.0, Hct 41.4, MCV 93.3, MCH 31.6 H, MCHC 33.9, RDW 13.3, Plt Count 189, MPV 9.3, Neut # (Auto) 13.4 H, Lymph # (Auto) 0.1 L, Rhea # (Auto) 0.2, Eos # (Auto) 0.0, Baso # (Auto) 0.0, Absolute Nucleated RBC 0.01, Nucleated RBC % 0.1 Fish Bones: 05/10/18 05:35 05/10/18 05:35 Home Medications and Allergies Home Medications: Ambulatory Orders Calcium Carbonate [Calcium] 600 mg PO DAILY 05/09/18 Lovastatin 40 mg PO QPM 05/09/18 Multivitamin [Multiple Vitamins] 1 tab PO DAILY 05/09/18 Active Medications Acetaminophen (Tylenol) 650 mg PO Q4HR PRN PRN Reason: Pain 1 to 4 Last Admin: 05/10/18 03:36 Dose: 650 mg Enoxaparin Sodium (Lovenox) 40 mg SUBQ DAILY [facility] Last Admin: 05/09/18 09:36 Dose: Not Given Famotidine (Pepcid 20 Mg/50 Ml) 50 mls @ 100 mls/hr IV BID [facility] Last Admin: 05/10/18 09:38 Dose: 100 mls/hr Metronidazole (Flagyl 500 Mg/100 Ml) 500 mg in 100 mls @ 100 mls/hr IV Q8H [facility] Last Infusion: 05/10/18 09:26 Dose: Infused Ciprofloxacin (Cipro 400 Mg/200 Ml) 200 mls @ 200 mls/hr IV Q12H [facility] Last Infusion: 05/09/18 22:42 Dose: Infused Morphine Sulfate (Morphine (Carpuject)) 2 mg IVP Q2HR PRN PRN Reason: PAIN Ondansetron HCl (Zofran Inj) 4 mg IVP Q6HR PRN PRN Reason: Nausea / Vomiting Last Admin: 05/09/18 10:39 Dose: 4 mg Polyethylene Glycol (Miralax) 17 gm PO DAILY [facility] Last Admin: 05/09/18 08:29 Dose: Not Given Prochlorperazine Edisylate (Compazine Inj) 10 mg IVP Q6HR PRN PRN Reason: Nausea / Vomiting Last Admin: 05/09/18 12:49 Dose: 10 mg Promethazine HCl (Phenergan Inj) 25 mg IM Q6HR PRN PRN Reason: Nausea / Vomiting Sodium Chloride (Normal Saline Flush 0.9%) 10 ml IVP PRN PRN PRN Reason: NEEDED PER PROVIDER ORDERS Last Admin: 05/10/18 06:27 Dose: 10 ml Sodium Chloride (Normal Saline Flush 0.9%) 10 ml IVP 0100,0900,1700 [facility] Last Admin: 05/09/18 23:17 Dose: Not Given Zolpidem Tartrate (Ambien) 5 mg PO QPM PRN PRN Reason: Insomnia Calcium Carbonate [Calcium] 600 mg PO DAILY 05/09/18 Lovastatin 40 mg PO QPM 05/09/18 Multivitamin [Multiple Vitamins] 1 tab PO DAILY 05/09/18 Allergies/Adverse Reactions: Allergies Allergy/AdvReac Type Severity Reaction Status Date / Time Penicillins Allergy Unknown Verified 05/09/18 02:23 epinephrine AdvReac Unknown Verified 05/09/18 02:23 lorazepam AdvReac Nausea Verified 05/09/18 02:23 meperidine AdvReac Nausea Verified 05/09/18 02:23 oxycodone AdvReac Nausea Verified 05/09/18 02:23 Anes History & Medical History - Anesthetic History Anesthesia Complications: reports: No previous complications Family history of Anesthesia Complications: Denies Family history of Malignant Hyperthermia: Denies - Medical History Cardiovascular: reports: High cholesterol Pulmonary: reports: None, Other (Hx pneumonia) Gastrointestinal: reports: GERD Urinary: reports: None, Other (Renal glycosuria) Neuro: reports: Other Musculoskeletal: reports: Fibromyalgia Endocrine/Autoimmune: reports: None Blood Disorders: reports: None Skin: reports: None Smoking Status: Never smoker Psychosocial: reports: No issues indicated Other Past Medical History: Bladder CA, Skin CA - Surgical History Urologic: Bladder surgery Orthopedic: Arthroscopic surgery Dermatologic: Skin cancer surgery Exam General: Alert, Oriented x3 Dental: WNL Mouth Opening: Greater than 4 Fingerbreadths Neck Mobility: Normal Mallampati classification: II Thyromental Distance: greater than 6 cm Respiratory: Lungs clear Cardiovascular: Regular rate Neurological: Normal speech Mental/Cognitive Status: Alert/Oriented X3 Cognitive Status: Within normal limits Plan Anesthesia Type: General Consent for Procedure(s) Verified and Reviewed: Yes Code Status: Attempt Resuscitation ASA classification: 1-Healthy patient Is this case an emergency?: No
[2018-05-10] MEDS: CIPROFLOXACIN 400 MG/200 ML 200 ML IV SCH ×2 (10:11→21:58)
[2018-05-10] MEDS: ENOXAPARIN 40 MG/0.4 ML SYRINGE SUBQ SCH (10:14)
[2018-05-10] MEDS ORDERED: LACTATED RINGERS 1,000 ML IV ONE (11:28)
[2018-05-10] MEDS ORDERED: BUPIVACAINE 0.5% PF 30 ML VIAL INFIL ONE (12:19)
--- NOTE | 2018-05-10 13:10 | OPERATIVE REPORT ---
Operative Report - General Admit Date: 05/09/18 Procedure Date: 05/10/18 Planned Procedure: Laparoscopic cholecystectomy, possible open cholecystectomy, possible commo Pre-Op Diagnosis: Gallstone pancreatitis with negative MRCP Procedure Performed: Laparoscopic cholecystectomy Post Op Diagnosis: Same - Procedure Note Primary Surgeon: Owen Whiteside MD Anesthesia Provider: Maria Del Rosario Montelongo CRNA Anesthesia Technique: General ET tube, Local (30 mL of half percent Marcaine) Pathology: Aerobic and anaerobic cultures of gallbladder fluid sent IV Fluids (mL): 1,000 Estimated Blood Loss (mL): 5 Complications: None. - Other Other Information/Narrative: OPERATIVE DESCRIPTION/REPORT: After verbal and written informed consent was obtained detailing the risks of infection, bleeding with all of its risks including transfusion, common bile duct injury, and the patient was brought to the operative suite and placed in the supine position on the operating room table. Monitoring devices were applied along with TEDs and pneumatic compressive stockings. Care was taken to avoid pressure points. Prophylactic antibiotics were given. An adequate level of general endotracheal anesthesia was established by Maria Del Rosario Montelongo CRNA. The abdomen was then prepped with ChloraPrep and draped in a sterile fashion. A "time in" then confirmed that the patient was identified with 3 identifiers (name, date and medical record number), the history and physical was in the chart, the signed consent confirming the procedure was in the chart, the patient was in the correct position, the aforementioned prophylactic measures were in place or given, we had the correct personnel and equipment to complete the procedure and that anesthesia, surgery and nursing were given an opportunity to express any concerns. The initial incision was at the umbilicus and dissection to the linea alba was completed using blunt dissection. The linea alba was grasped with a Lance and incised. In a similar manner the peritoneum was grasped and incised using Metzenbaum scissors. In this location, a 12 mm blunt tipped, balloon tipped port was placed and the balloon was inflated to keep the port in position. The abdominal cavity was insufflated with carbon dioxide to steady-state pressure of 15 mmHg. Three additional 5 mm ports were placed in standard location for laparoscopic cholecystectomy (subxiphoid and 2 right subcostal) under direct vision of the 30 degree laparoscope and without incident. The patient was then placed in reverse Trendelenburg position and was rotated slightly to their left. There was a large amount of fibrinous exudate around the gallbladder and significant adhesions to the gallbladder. These had to be taken down first before the gallbladder could even be seen. This was done using a combination of blunt dissection as well as Bovie electrocautery. Additionally, there was some ascites in the abdomen likely due to her pancreatitis. The gallbladder was distended so that it could not be easily grasped. The gallbladder was drained using a laparoscopic needle attached to a 20 mL syringe. Due to the patient's appearance as well as the smell of the bile I sent it off for aerobic and anaerobic culture. The gallbladder fundus was grasped with an atraumatic grasper. Multiple adhesions had to be taken down by blunt and sharp dissection along with electrocautery. Eventually, we identified the infundibulum, and this was then grasped and retracted inferior and laterally. Dissection was then begun in the angle of Calot. The cystic duct and (slightly medially and posteriorly) cystic artery were clearly identified. The critical view was obtained. Two clips proximally and one clip distally were used to control both the cystic duct and cystic artery. The clips were carefully placed to avoid occluding the juncture with the common bile duct. Both the cystic duct and then the cystic artery were then transected with laparoscopic yuly. The gallbladder was then removed from its fossa in a retrograde fashion using electrocautery. With the 30 degree 5 mm scope in the subxiphoid position, the gallbladder was placed in an EndoCatch bag to be extracted through the 12 mm port site. I irrigated the right upper quadrant with a liter of warm sterile saline, and the area was aspirated dry. I inspected the gallbladder fossa and there was no bleeding or bile leak. Clips on the cystic duct and cystic artery appeared to be secure. I briefly visually explored the abdomen. There was no other evidence of overt pathology. I injected the port sites at the peritoneal, fascial, and skin levels under direct vision with 0.5% Marcaine. All ports and the EndoCatch containing the gallbladder were removed. Following gallbladder removal, the remaining carbon dioxide was expelled from the abdomen. The fascia at the umbilicus was reapproximated using 2 [id number] 0 Vicryl sutures. The skin at each port site was approximated using a subcuticular 4-0 Monocryl. The surgical count of instruments, needles and sponges was reported as correct twice. Meredith, Steri-Strips and sterile surgical dressings were applied. The patient was then awakened from anesthesia, extubated, and having tolerated the procedure well, was transported to the recovery room. No complications were encountered. A "time out" confirmed the operation performed, the fluids given, the estimated blood loss and anesthesia, surgery and nursing were given an opportunity to express any concerns. [employer] disclaimer: This document was created in part using voice recognition technology. Because of the inherent limitations of the system ([employer]'s [employer] Dictate user manual states that the licensee understands that speech recognition is a statistical process and that recognition errors are inherent in the process), occasional same sounding word substitutions and grammatical errors do occur and persist despite proofreading. Please read this document for context.
[2018-05-10] MEDS ORDERED: SODIUM CHLORIDE FLUSH 0.9% 10 ML SYRINGE IVP PRN (13:14)
[2018-05-10] MEDS ORDERED: HYDROcod/ACETAM 5/325 MG TABLET PO PRN (13:14)
[2018-05-10] MEDS ORDERED: ESMOLOL 100 MG/10 ML VIAL IVP ONE (13:20)
[2018-05-10] MEDS ORDERED: DEXAMETHASONE 4 MG/ML VIAL IVP ONE (13:20)
[2018-05-10] MEDS ORDERED: ROCURONIUM 50 MG/5 ML VIAL IVP ONE (13:20)
[2018-05-10] MEDS ORDERED: LIDOCAINE-MPF 2% 5 ML VIAL IM ONE (13:20)
[2018-05-10] MEDS ORDERED: METOPROLOL 5 MG/5 ML VIAL IVP ONE (13:20)
[2018-05-10] MEDS ORDERED: GLYCOPYRROLATE 1 MG/5 ML VIAL IVP ONE (13:20)
[2018-05-10] MEDS ORDERED: ONDANSETRON 4 MG/2 ML VIAL IVP ONE (13:20)
[2018-05-10] MEDS ORDERED: NEOSTIGMINE 1 MG/1 ML 10 ML MDV IVP ONE (13:20)
[2018-05-10] MEDS ORDERED: fentaNYL 100 MCG/2 ML VIAL IVP ONE (13:20)
[2018-05-10] MEDS ORDERED: ACETAMINOPHEN 1,000 MG/100 ML 100 ML IV ONE (13:20)
[2018-05-10] MEDS ORDERED: PROPOFOL 200 MG/20 ML VIAL IVP ONE (13:20)
[2018-05-10] MEDS ORDERED: KETOROLAC 15 MG/ML VIAL ONE (13:34)
[2018-05-10] MEDS: POLYETHYLENE GLYCOL 3350 17 GM PACKET PO SCH (14:12)
[2018-05-10] MEDS: ONDANSETRON 4 MG/2 ML VIAL IVP PRN (15:41)
[2018-05-10] MEDS: SODIUM CHLORIDE FLUSH 0.9% 10 ML SYRINGE IVP SCH ×2 (15:41→16:59)
[2018-05-10] MEDS ORDERED: ONDANSETRON 4 MG/2 ML VIAL IVP PRN (16:33)
[2018-05-10] MEDS: PROCHLORPERAZINE 10 MG/2 ML VIAL IVP PRN (16:59)
[2018-05-10] MEDS: SODIUM CHLORIDE 0.9% 1,000 ML IV SCH (17:00)
--- NOTE | 2018-05-10 18:25 | PROVIDER PROGRESS NOTE ---
Subjective - Prog Note Date Prog Note Date: 05/10/18 Prog Note Time: 18:22 - Subjective Pt reports feeling: Improved Subjective: Sharee states that her post-surgical sites in her abdomen are not painful, and has no palpitations from her racing heart. She has no complaints when asked, and denies rashes, shortness of breath, vomiting, fevers or chills. Current Medications - Current Medications Current Medications: Active Medications Acetaminophen (Tylenol) 650 mg PO Q4HR PRN PRN Reason: Pain 1 to 4 Last Admin: 05/10/18 03:36 Dose: 650 mg Hydrocodone Bitart/Acetaminophen ([place] 5/325) 1 tab PO Q4HR PRN PRN Reason: PAIN Enoxaparin Sodium (Lovenox) 40 mg SUBQ DAILY [facility] Last Admin: 05/10/18 10:14 Dose: 40 mg Famotidine (Pepcid 20 Mg/50 Ml) 50 mls @ 100 mls/hr IV BID [facility] Last Infusion: 05/10/18 10:09 Dose: Infused Metronidazole (Flagyl 500 Mg/100 Ml) 500 mg in 100 mls @ 100 mls/hr IV Q8H [facility] Last Infusion: 05/10/18 15:55 Dose: Infused Ciprofloxacin (Cipro 400 Mg/200 Ml) 200 mls @ 200 mls/hr IV Q12H [facility] Last Infusion: 05/10/18 11:31 Dose: Infused Sodium Chloride (Normal Saline 0.9%) 1,000 mls @ 83.333 mls/hr IV .Q12H [facility] Last Admin: 05/10/18 17:00 Dose: 83.333 mls/hr Morphine Sulfate (Morphine (Carpuject)) 2 mg IVP Q2HR PRN PRN Reason: PAIN Ondansetron HCl (Zofran Inj) 4 mg IVP Q4HR PRN PRN Reason: Nausea / Vomiting Polyethylene Glycol (Miralax) 17 gm PO DAILY [facility] Last Admin: 05/10/18 14:12 Dose: Not Given Prochlorperazine Edisylate (Compazine Inj) 10 mg IVP Q6HR PRN PRN Reason: Nausea / Vomiting Last Admin: 05/10/18 16:59 Dose: 10 mg Promethazine HCl (Phenergan Inj) 25 mg IM Q6HR PRN PRN Reason: Nausea / Vomiting Sodium Chloride (Normal Saline Flush 0.9%) 10 ml IVP 0100,0900,1700 [facility] Last Admin: 05/10/18 16:59 Dose: 10 ml Sodium Chloride (Normal Saline Flush 0.9%) 10 ml IVP PRN PRN PRN Reason: NEEDED PER PROVIDER ORDERS Zolpidem Tartrate (Ambien) 5 mg PO QPM PRN PRN Reason: Insomnia Calcium Carbonate [Calcium] 600 mg PO DAILY 05/09/18 Lovastatin 40 mg PO QPM 05/09/18 Multivitamin [Multiple Vitamins] 1 tab PO DAILY 05/09/18 Objective - Vital Signs/Intake & Output Reviewed Vital Signs: Yes Vital Signs: Vital Signs x48h Temp Pulse Pulse Resp BP BP BP 05/10/18 17:44 36.9 C 114 H 16 107/46 L 05/10/18 17:00 90 05/10/18 15:40 125 H 05/10/18 15:37 60 16 124/61 05/10/18 14:34 36.8 C 107 H 20 116/78 05/10/18 14:19 79 16 115/47 L 05/10/18 14:00 36.8 C 80 22 108/46 L 05/10/18 13:55 36.5 C 117 H 14 113/35 L 05/10/18 13:50 36.5 C 101 H 12 110/43 L 05/10/18 13:47 36.5 C 112 H 14 105/49 L 05/10/18 13:40 36.6 C 87 14 111/40 L 05/10/18 13:34 36.6 C 90 12 102/40 L 05/10/18 13:30 36.6 C 74 12 99/43 L 05/10/18 13:25 36.6 C 110 H 12 107/37 L 05/10/18 13:20 36.6 C 106 H 12 131/60 H 05/10/18 13:15 36.6 C 94 12 113/41 L Pulse Ox 05/10/18 17:44 96 05/10/18 17:00 93 05/10/18 15:40 05/10/18 15:37 94 05/10/18 14:34 94 05/10/18 14:19 05/10/18 14:00 93 05/10/18 13:55 96 05/10/18 13:50 96 05/10/18 13:47 96 05/10/18 13:40 95 05/10/18 13:34 94 05/10/18 13:30 95 05/10/18 13:25 98 05/10/18 13:20 93 05/10/18 13:15 94 Intake & Output: Intake & Output 05/08/18 05/08/18 05/09/18 05/10/18 00:59 23:59 23:59 23:59 Intake Total 2679.500 1720 Output Total 550 700 Balance 2129.500 1020 - Objective General Appearance: positive: Alert, Mild distress Eyes Bilateral: positive: Normal inspection, No lid inflammation ENT: positive: ENT inspection nml, Pharynx nml, Dry mucous membranes Neck: positive: Thyroid nml, No JVD, Trachea midline Respiratory: positive: Chest non-tender, Other (bilateral low lobe crackles) Cardiovascular: positive: Regular rate & rhythm, Tachycardia, Bradycardia, Systolic murmur, Decreased pulse(s) Peripheral Pulses: 1+ Radial (R), 1+ Radial (L) Abdomen: positive: Tenderness, Guarding, Abnml bowel sounds, Other (post- surgical sites are CDI, with expected amount of tenderness and generalized abdominal swelling.) Back: positive: Nml inspection Skin: positive: No rash, Warm, Dry Extremities: positive: Non-tender, Full ROM, Nml appearance, No pedal edema Neurologic/Psychiatric: positive: Oriented x3, CN's nml (2-12), Motor nml, Sensation nml, Weakness, Depressed mood/affect Reflexes: Bicep (R): 3+, Bicep (L): 3+ - Lab Results Fish Bones: 05/10/18 05:35 05/10/18 05:35 Other Labs: Lab Results x24hrs 05/10/18 05/10/18 05/10/18 Range/Units 05:35 05:35 05:35 WBC (4.8-10.8) x10^3/uL RBC (4.20-5.40) 10^6/uL Hgb (12.0-16.0) g/dL Hct (37.0-47.0) % MCV (81.0-99.0) fL MCH (27.0-31.0) pg MCHC (32.0-36.0) g/dL RDW (12.0-15.0) % Plt Count (130-450) 10^3/uL MPV (7.9-10.8) fL Neut # (Auto) (1.5-6.6) 10^3/uL Lymph # (Auto) (1.5-3.5) 10^3/uL [place] # (Auto) (0.0-1.0) 10^3/uL Eos # (Auto) (0.0-0.7) 10^3/uL Baso # (Auto) (0.0-0.1) 10^3/uL Absolute Nucleated RBC x10^3/uL Nucleated RBC % /100WBC PT (9.9-12.6) secs INR (0.8-1.2) Sodium (135-145) mmol/L Potassium (3.5-5.0) mmol/L Chloride (101-111) mmol/L Carbon Dioxide (21-32) mmol/L Anion Gap (6-13) BUN (6-20) mg/dL Creatinine (0.4-1.0) mg/dL Estimated GFR (MDRD) (>89) Glucose (70-100) mg/dL Glycated Hemoglobin 5.6 (4.6-6.2) % Estim Average Glucose 114 H (70-100) Lactic Acid < 0.3 L (0.5-2.2) mmol/L Calcium (8.5-10.3) mg/dL Phosphorus (2.5-4.6) mg/dL Magnesium (1.7-2.8) mg/dL Total Bilirubin (0.2-1.0) mg/dL AST (10-42) IU/L ALT (10-60) IU/L Alkaline Phosphatase (42-121) IU/L Lactate Dehydrogenase (91-225) IU/L Total Protein (6.7-8.2) g/dL Albumin (3.2-5.5) g/dL Globulin (2.1-4.2) g/dL Albumin/Globulin Ratio (1.0-2.2) Triglycerides 66 ( - 149) mg/dL Cholesterol 106 ( - 199) mg/dL LDL Cholesterol, Calc 37 ( - 129) mg/dL VLDL Cholesterol 13 mg/dL HDL Cholesterol 56 L (60 - ) mg/dL LDL/HDL Ratio 0.7 (<4.4) Cholesterol/HDL Ratio 1.9 (<4.4) Amylase (28-100) U/L Lipase (22-51) U/L 05/10/18 05/10/18 05/10/18 Range/Units 05:35 05:35 05:35 WBC (4.8-10.8) x10^3/uL RBC (4.20-5.40) 10^6/uL Hgb (12.0-16.0) g/dL Hct (37.0-47.0) % MCV (81.0-99.0) fL MCH (27.0-31.0) pg MCHC (32.0-36.0) g/dL RDW (12.0-15.0) % Plt Count (130-450) 10^3/uL MPV (7.9-10.8) fL Neut # (Auto) (1.5-6.6) 10^3/uL Lymph # (Auto) (1.5-3.5) 10^3/uL [place] # (Auto) (0.0-1.0) 10^3/uL Eos # (Auto) (0.0-0.7) 10^3/uL Baso # (Auto) (0.0-0.1) 10^3/uL Absolute Nucleated RBC x10^3/uL Nucleated RBC % /100WBC PT 17.0 H (9.9-12.6) secs INR 1.5 H (0.8-1.2) Sodium 138 (135-145) mmol/L Potassium 4.0 (3.5-5.0) mmol/L Chloride 107 (101-111) mmol/L Carbon Dioxide 25 (21-32) mmol/L Anion Gap 6.0 (6-13) BUN 18 (6-20) mg/dL Creatinine 0.6 (0.4-1.0) mg/dL Estimated GFR (MDRD) 96 (>89) Glucose 106 H (70-100) mg/dL Glycated Hemoglobin (4.6-6.2) % Estim Average Glucose (70-100) Lactic Acid (0.5-2.2) mmol/L Calcium 8.3 L (8.5-10.3) mg/dL Phosphorus 2.3 L (2.5-4.6) mg/dL Magnesium 2.0 (1.7-2.8) mg/dL Total Bilirubin 1.6 H (0.2-1.0) mg/dL AST 52 H (10-42) IU/L ALT 55 (10-60) IU/L Alkaline Phosphatase 126 H (42-121) IU/L Lactate Dehydrogenase 136 (91-225) IU/L Total Protein 5.6 L (6.7-8.2) g/dL Albumin 3.1 L (3.2-5.5) g/dL Globulin 2.5 (2.1-4.2) g/dL Albumin/Globulin Ratio 1.2 (1.0-2.2) Triglycerides ( - 149) mg/dL Cholesterol ( - 199) mg/dL LDL Cholesterol, Calc ( - 129) mg/dL VLDL Cholesterol mg/dL HDL Cholesterol (60 - ) mg/dL LDL/HDL Ratio (<4.4) Cholesterol/HDL Ratio (<4.4) Amylase 124 H (28-100) U/L Lipase 48 (22-51) U/L 05/10/18 Range/Units 05:35 WBC 8.9 (4.8-10.8) x10^3/uL RBC 3.58 L (4.20-5.40) 10^6/uL Hgb 11.5 L (12.0-16.0) g/dL Hct 33.6 L (37.0-47.0) % MCV 94.0 (81.0-99.0) fL MCH 32.1 H (27.0-31.0) pg MCHC 34.2 (32.0-36.0) g/dL RDW 13.5 (12.0-15.0) % Plt Count 151 (130-450) 10^3/uL MPV 9.3 (7.9-10.8) fL Neut # (Auto) 8.1 H (1.5-6.6) 10^3/uL Lymph # (Auto) 0.3 L (1.5-3.5) 10^3/uL [place] # (Auto) 0.4 (0.0-1.0) 10^3/uL Eos # (Auto) 0.0 (0.0-0.7) 10^3/uL Baso # (Auto) 0.0 (0.0-0.1) 10^3/uL Absolute Nucleated RBC 0.00 x10^3/uL Nucleated RBC % 0.0 /100WBC PT (9.9-12.6) secs INR (0.8-1.2) Sodium (135-145) mmol/L Potassium (3.5-5.0) mmol/L Chloride (101-111) mmol/L Carbon Dioxide (21-32) mmol/L Anion Gap (6-13) BUN (6-20) mg/dL Creatinine (0.4-1.0) mg/dL Estimated GFR (MDRD) (>89) Glucose (70-100) mg/dL Glycated Hemoglobin (4.6-6.2) % Estim Average Glucose (70-100) Lactic Acid (0.5-2.2) mmol/L Calcium (8.5-10.3) mg/dL Phosphorus (2.5-4.6) mg/dL Magnesium (1.7-2.8) mg/dL Total Bilirubin (0.2-1.0) mg/dL AST (10-42) IU/L ALT (10-60) IU/L Alkaline Phosphatase (42-121) IU/L Lactate Dehydrogenase (91-225) IU/L Total Protein (6.7-8.2) g/dL Albumin (3.2-5.5) g/dL Globulin (2.1-4.2) g/dL Albumin/Globulin Ratio (1.0-2.2) Triglycerides ( - 149) mg/dL Cholesterol ( - 199) mg/dL LDL Cholesterol, Calc ( - 129) mg/dL VLDL Cholesterol mg/dL HDL Cholesterol (60 - ) mg/dL LDL/HDL Ratio (<4.4) Cholesterol/HDL Ratio (<4.4) Amylase (28-100) U/L Lipase (22-51) U/L ABX Reporting Has patient been on IV antibiotics over the past 48 hours?: Yes Sepsis Event Note (H) - Evaluation Current Stage of Sepsis: Ruled out Possible source of Sepsis: positive: GI tract/intra-abdominal Confirmed Source and Organism (if known) of Sepsis: surgical samples are pending. - Sepsis Criteria Sepsis Criteria: Recorded Heart Rate greater than 90 bpm, Respiratory: Increasing oxygen requirements Assessment/Plan - Problem List (1) Postoperative examination Impression: The patient now has laproscopic sites in her abdomen with no obvious drainage and the expected amount of slight tenderness on exam. She states that her abdomen is just a bit more swollen than normal and denies any evidence of bleeding. Bilateral low lobe crackles are appreciated on exam. An incentive spirometer is at the bedside. She is on 2L nasal cannuala. Plan: Continue gentle IV fluids, post-op care and await chest x-ray. (2) Tachycardia Impression: The patient was not on telemetry, but is noted to have heart rates 80-120's. On exam, she is anabelle, and tachy with crackles in her bilateral low bases. She states that she had a "full cardiac work up" at [place] prior to this admission, since she was having pain after eating that radiated to her left arm. There are minimal scanned in documents, but there is a treadmill stress test that was normal and an EF of 70%. I will put her on telemetry overnight, and so far it shows a sinus rhythm at 138 bpm. Plan: Routine vital signs, continue tele, obtain a chest x-ray to rule out other causes. (3) Acute cholecystitis Impression: The patient underwent a gall bladder removal with Dr. Hernandez and so far has not had any complications. She consumed a soft diet, but has since had some nausea that is nicely controlled with zofran and compazine. Plan: Continue post-op care, monitor for infection. (4) Hyperlipidemia Impression: The patient is prescribed a statin out patient, that continues on hold since she is post-op. Plan: Restart prior to discharge. Qualifiers: Hyperlipidemia type: unspecified Qualified Code(s): E78.5 - Hyperlipidemia, unspecified
--- NOTE | 2018-05-10 20:24 | XRAY Report ---
Reason: bilateral low lobe crackles Procedure Date: 05/10/2018 Accession Number: [id number] / [id number] Procedure: XR - Chest 1 View X-Ray CPT Code: 83448 FULL RESULT: EXAM: CHEST RADIOGRAPHY EXAM DATE: 05/10/2018 07:19 PM. CLINICAL HISTORY: Bilateral low lobe crackles. COMPARISON: None. TECHNIQUE: 1 view. FINDINGS: Lungs/Pleura: There are bibasilar linear opacities. There is mild elevation of the right hemidiaphragm. Mediastinum: Heart size is normal. There is mild aortic arch atherosclerotic calcification. Other: None. IMPRESSION: Bibasilar linear opacities, most suggestive of basilar dependent atelectasis. A small right pleural effusion is not excluded. RADIA
[2018-05-11 04:59] LABS: BASOPHILS % (AUTO) 0.4 %; HGB - HEMOGLOBIN 11.2 g/dL (12.0-16.0); LYMPHOCYTES # (AUTO) 0.4 10^3/uL (1.5-3.5); LYMPHOCYTES % (AUTO) 4.5 %; MEAN CORPUSCULAR HEMOGLOBIN 31.7 pg (27.0-31.0); MEAN CORPUSCULAR HGB CONC 33.5 g/dL (32.0-36.0); MEAN CORPUSCULAR VOLUME 94.8 fL (81.0-99.0); MEAN PLATELET VOLUME 9.8 fL (7.9-10.8); MONOCYTES # (AUTO) 0.4 10^3/uL (0.0-1.0); NEUTROPHILS # (AUTO) 7.4 10^3/uL (1.5-6.6); NEUTROPHILS % (AUTO) 90.1 %; PLT - PLATELET COUNT 136 10^3/uL (130-450); RED BLOOD COUNT 3.54 10^6/uL (4.20-5.40); RED CELL DISTRIBUTION WIDTH 13.3 % (12.0-15.0); WHITE BLOOD COUNT 8.2 x10^3/uL (4.8-10.8)
[2018-05-11 05:11] LABS: ALBUMIN 2.8 g/dL (3.2-5.5); BILIRUBIN,TOTAL 0.8 mg/dL (0.2-1.0); CREATININE 0.5 mg/dL (0.4-1.0); MAGNESIUM 1.8 mg/dL (1.7-2.8); PHOSPHORUS 2.5 mg/dL (2.5-4.6); TOTAL PROTEIN 5.5 g/dL (6.7-8.2)
[2018-05-11] MEDS: metroNIDAZOLE 500 MG/100 ML 500 MG/100 ML BAG IV SCH (06:10)
[2018-05-11 07:38] VITALS: BP 135/68
[2018-05-11] MEDS: ENOXAPARIN 40 MG/0.4 ML SYRINGE SUBQ SCH (08:48)
[2018-05-11] MEDS: POLYETHYLENE GLYCOL 3350 17 GM PACKET PO SCH (08:49)
[2018-05-11] MEDS: FAMOTIDINE 20 MG/50 ML 50 ML IV SCH (08:53)
--- NOTE | 2018-05-11 09:03 | PROVIDER PROGRESS NOTE ---
Subjective - General Admit Date: 05/09/18 Procedure Date: 05/10/18 Post Op Days: 1 Procedure Performed: Laparoscopic cholecystectomy - Review of Systems Wound/Incisions: positive: Dressing dry and intact General: positive: No symptoms HEENT: positive: No symptoms Pulmonary: positive: No symptoms Gastrointestinal: positive: No symptoms Genitourinary: positive: No symptoms Musculoskeletal: positive: No symptoms Skin: positive: No symptoms Psychiatric: positive: No symptoms Objective - Patient Data Reviewed Vital Signs: Yes Vital Signs: Vital Signs x48h Temp Pulse Resp BP Pulse Ox 05/11/18 07:37 36.5 C 96 18 135/68 H 96 Weight: Weight 05/09/18 05/10/18 05/11/18 23:59 23:59 23:59 Weight (kg) 52.5 kg Intake & Output: Intake and Output Totals x24h 05/09/18 05/10/18 05/11/18 23:59 23:59 23:59 Intake Total 2679.500 1970 465 Output Total 550 700 450 Balance 2129.500 1270 15 - Lab Results Lab Results: 05/11/18 04:25 05/11/18 04:25 Other Lab Results: Lab Results x24hrs 05/11/18 05/11/18 Range/Units 04:25 04:25 WBC 8.2 (4.8-10.8) x10^3/uL RBC 3.54 L (4.20-5.40) 10^6/uL Hgb 11.2 L (12.0-16.0) g/dL Hct 33.6 L (37.0-47.0) % MCV 94.8 (81.0-99.0) fL MCH 31.7 H (27.0-31.0) pg MCHC 33.5 (32.0-36.0) g/dL RDW 13.3 (12.0-15.0) % Plt Count 136 (130-450) 10^3/uL MPV 9.8 (7.9-10.8) fL Neut # (Auto) 7.4 H (1.5-6.6) 10^3/uL Lymph # (Auto) 0.4 L (1.5-3.5) 10^3/uL [place] # (Auto) 0.4 (0.0-1.0) 10^3/uL Eos # (Auto) 0.0 (0.0-0.7) 10^3/uL Baso # (Auto) 0.0 (0.0-0.1) 10^3/uL Absolute Nucleated RBC 0.00 x10^3/uL Nucleated RBC % 0.0 /100WBC Sodium 137 (135-145) mmol/L Potassium 4.0 (3.5-5.0) mmol/L Chloride 104 (101-111) mmol/L Carbon Dioxide 24 (21-32) mmol/L Anion Gap 9.0 (6-13) BUN 15 (6-20) mg/dL Creatinine 0.5 (0.4-1.0) mg/dL Estimated GFR (MDRD) 119 (>89) Glucose 107 H (70-100) mg/dL Calcium 8.0 L (8.5-10.3) mg/dL Phosphorus 2.5 (2.5-4.6) mg/dL Magnesium 1.8 (1.7-2.8) mg/dL Total Bilirubin 0.8 (0.2-1.0) mg/dL AST 73 H (10-42) IU/L ALT 58 (10-60) IU/L Alkaline Phosphatase 122 H (42-121) IU/L Total Protein 5.5 L (6.7-8.2) g/dL Albumin 2.8 L (3.2-5.5) g/dL Globulin 2.7 (2.1-4.2) g/dL Albumin/Globulin Ratio 1.0 (1.0-2.2) Amylase 50 (28-100) U/L Lipase 26 (22-51) U/L - Current Medications Current Medications: Current Medications Generic Name Dose Route Start Last Admin Trade Name Freq PRN Reason Stop Dose Admin Acetaminophen 650 mg 05/09/18 06:10 05/10/18 03:36 Tylenol PO 650 mg Q4HR PRN Administration Pain 1 to 4 Enoxaparin Sodium 40 mg 05/09/18 09:00 05/11/18 08:48 Lovenox SUBQ 40 mg DAILY [facility] Administration Famotidine 50 mls @ 100 mls/hr 05/09/18 09:00 05/11/18 08:53 Pepcid 20 Mg/50 Ml IV 100 mls/hr BID [facility] Administration Metronidazole 500 mg in 100 mls @ 100 mls/hr 05/09/18 07:00 05/11/18 07:10 Flagyl 500 Mg/100 Ml IV Infused Q8H [facility] Infusion Ciprofloxacin 200 mls @ 200 mls/hr 05/09/18 10:00 05/10/18 23:15 Cipro 400 Mg/200 Ml IV Infused Q12H [facility] Infusion Sodium Chloride 1,000 mls @ 83.333 mls/hr 05/10/18 17:00 05/10/18 17:00 Normal Saline 0.9% IV 83.333 mls/hr .Q12H [facility] Administration Polyethylene Glycol 17 gm 05/09/18 09:00 05/11/18 08:49 Miralax PO 17 gm DAILY [facility] Administration Prochlorperazine Edisylate 10 mg 05/09/18 06:10 05/10/18 16:59 Compazine Inj IVP 10 mg Q6HR PRN Administration Nausea / Vomiting Sodium Chloride 10 ml 05/10/18 17:00 05/10/18 16:59 Normal Saline Flush 0.9% IVP 10 ml 0100,0900,1700 [facility] Administration - Physical Exam Wound/Incisions: positive: Dressing dry and intact General Appearance: positive: No acute distress (Wants to go home.) Eyes Bilateral: positive: No lid inflammation, Conjunctivae nml, No scleral icterus ENT: positive: Dry mucous membranes Neck: positive: Trachea midline Respiratory: positive: Chest non-tender, No respiratory distress, Breath sounds nml Cardiovascular: positive: Regular rate & rhythm Abdomen: positive: Other (Benign.) Extremities: positive: Nml appearance Neurologic/Psychiatric: positive: Oriented x3 Impression/Plan - Problem List Problem List: No signs of active infection. Okay to discharge home. Instructions given. General diet. Okay to walk, climb stairs, run, shower, hot tub, swim, have sex. No lifting >15 pounds x6 weeks. See me in follow up in 7-10 days.
[2018-05-11] MEDS: SODIUM CHLORIDE FLUSH 0.9% 10 ML SYRINGE IVP SCH (09:14)
[2018-05-11] MEDS: SODIUM CHLORIDE 0.9% 1,000 ML IV SCH (09:51)
--- NOTE | 2018-05-11 09:54 | DISCHARGE SUMMARY ---
"Discharge Summary Admit Date: 05/09/18 Discharge Date: 05/11/18 Discharging Provider: YVON Barragan Primary Care Provider: Gino Handy Code Status: Attempt Resuscitation Condition at Discharge: Good Discharge Disposition: 01 Home, Self Care - DIAGNOSES Admission Diagnoses: Acute cholecystitis (K81.0) Biliary acute pancreatitis without necrosis or infection (K85.10) Other disorders of bilirubin metabolism (E80.6) Hypokalemia (E87.6) Hyperlipidemia, unspecified (E78.5) Hyperglycemia, unspecified (R73.9) Discharge Diagnoses with Status of Each Condition: Acute cholecystitis (K81.0) resolved, no post-op lap john, stable. Pancreatitis, gallstone (K85.10) resolved. Hyperlipidemia (E78.5) resolved, likely due to stress. Hypokalemia (E87.6) resolved. Hyperglycemia (R73.9) resolved. Tachycardia (R00.0) resolved. History of bladder cancer (Z85.51) chronic, stable. Hyperbilirubinemia (E80.6) resolved, but patient continues with mildly darkened urine, which is expected to clear. - HPI History of Present Illness: HPI per Dr. 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 The patient states that her abdominal pain started about 3-4 days ago. She states that initially she was having epigastric abdominal pain that would be episodic and resolved on its own. She noted that it did occur after meals. She states that the pain then became constant and severe on Wednesday evening. At that time she states that she went to the emergency department at [facility]. She states that she was placed in observation overnight and had a full cardiac workup. She had a stress test and workup was negative. Despite the workup being negative she continued to have abdominal pain and states that she was having nausea and decreased appetite. She states that her son asked for them to do a scan of her abdomen but she was discharged later in the evening without any further testing. The patient states that upon returning home she continued to have severe abdominal pain. She states the pain was located in her epigastric area of the abdomen and radiated down into the both her right and left lower quadrant as well as to her back. She states that she continued to feel nauseated and has not eaten all day. She states finally she could not take the pain any longer and return to our emergency department here at [facility] early this morni ng. The patient also admits to chills but denies any fevers. She states that the pain became especially worse when she tried to eat earlier yesterday afternoon. She states the pain is a 10 out of 10 and constant. She describes it as a sharp pain. She states that nothing has made it better except for pain medication in the emergency department and even that only last for a short period of time. Patient denies any headaches, blurred vision, runny nose, sore throat, nasal congestion, difficult to swallowing, chest pain, shortness of air, orthopnea, PND, cough, increased lower extremity swelling, diarrhea, constipation, urinary urgency, urinary frequency, dysuria, joint pain, joint swelling, neck stiffness, recent unintentional weight loss, polyuria, polydipsia, skin changes, skin rash, dizziness, lightheadedness, night sweats or any focal neurologic deficits. On presentation to the emergency department the patient was in a fair amount of distress as she was writhing in pain. She was tachycardic with a heart rate of 108 and hypertensive with a blood pressure of 165/78. She was afebrile. She was brought in by ambulance and was given fentanyl in route. Despite the fentanyl she continued to have pain when she presented to the emergency department and received additional doses of fentanyl and IV morphine. The patient's pain improved however the pain returned quickly after the medication was given. The patient underwent routine lab work which did reveal a leukocytosis of 13.7, hypokalemia with a potassium of 3.3, hyperglycemia with a blood glucose of 159, elevated total bilirubin with a bilirubin of 2.4, elevated AST, ALT and alk phos as well as an elevated amylase of 934 and lipase of 1110. The patient underwent a abdominal ultrasound which revealed cholelithiasis, with gallbladder wall thickening and localized tenderness compatible with acute cholecystitis. There was no evidence of common bile duct dilation. The patient then underwent a CT of her abdomen and pelvis which revealed pericholecystic inflammation and cholelithiasis compatible with acute cholecystitis but again no evidence of choledocholithiasis. The patient was admitted to the medical arce[facility] for acute cholecystitis and gallstone pancreatitis. Cultures were obtained in the emergency department and patient is being started on IV antibiotics, IV fluids and will be made n.p.o. until she has a surgical consult. MRCP has also been ordered. - CONSULTS | PROCEDURES Consultations: General Surgery, Dr. Owen Hernandez Procedures: lab-john - HOSPITAL COURSE Hospital Course: This patient was admitted with acute cholecystitis and underwent a lap john with Dr. Hernandez, with no known post op complications. There were no medication changes made and she was NOT continued on antibiotics as the source was removed at the time of surgery. She did not require any narcotics and was agreeable with tylenol to continue at home. She will follow up with surgery as recommended and was anxious to return home with family. - ALLERGIES Allergies/Adverse Reactions: Allergies Allergy/AdvReac Type Severity Reaction Status Date / Time Penicillins Allergy Unknown Verified 05/09/18 02:23 epinephrine AdvReac Unknown Verified 05/09/18 02:23 lorazepam AdvReac Nausea Verified 05/09/18 02:23 meperidine AdvReac Nausea Verified 05/09/18 02:23 oxycodone AdvReac Nausea Verified 05/09/18 02:23 - MEDICATIONS Home Medications: Ambulatory Orders Medication Instructions Recorded Confirmed Calcium Carbonate [Calcium] 600 mg PO DAILY 05/09/18 05/09/18 Lovastatin 40 mg PO QPM 05/09/18 05/09/18 Multivitamin [Multiple Vitamins] 1 tab PO DAILY 05/09/18 05/09/18 - PHYSICAL EXAM AT DISCHARGE General Appearance: positive: No acute distress, Alert Eyes Bilateral: positive: Normal inspection, No lid inflammation ENT: positive: ENT inspection nml, Pharynx nml, Dry mucous membranes Neck: positive: Thyroid nml, No JVD, Trachea midline Respiratory: positive: Chest non-tender, No respiratory distress, Other (diminished, scattered crackles that clear with cough) Cardiovascular: positive: No gallop, Irregularly irregular, Systolic murmur, Decreased pulse(s) Peripheral Pulses: positive: 2+ Abdomen: positive: Nml bowel sounds, Tenderness, Other (firm, rounded. Post-op dressings in place without drainage.) Back: positive: Nml inspection Skin: positive: No rash, Warm, Dry Extremities: positive: Non-tender, Full ROM, Nml appearance, No pedal edema Neurologic/Psychiatric: positive: Oriented x3, CN's nml (2-12), Motor nml, Sensation nml, Mood/affect nml Reflexes: Bicep (R): 3+, Bicep (L): 3+ - LABS Result Diagrams: 05/11/18 04:25 05/11/18 04:25 - DIAGNOSTIC IMAGING Diagnostic Imaging Results: Final report reviewed Diagnostic Imaging Results Comments: EXAM: MR ABDOMEN WITHOUT CONTRAST (MR CHOLANGIOPANCREATOGRAPHY) EXAM DATE: 05/09/2018 12:40 PM. IMPRESSION: Cholecystitis without choledocholithiasis. - FOLLOW UP Follow Up: Disposition: 01 Home, Self Care Condition: Good Additional Instructions or Follow Up instructions: You were admitted with acute cholecystitis and underwent a gall bladder removal with Dr. Owen Hernandez with no post-op complications. You have not required any narcotics during your post-op course and you can take tylenol at home. You can also take daily Mirralax as a preventative to constipation. Follow usual post-op instructions. Please see Dr. Hernandez in one week. Please see your PCP within one week. - TIME SPENT Time Spent in Discharge (Minutes): 55"
== END 2018-05-11 10:25 | disposition home or self-care (01) | DRG 417 ==
LOC: EDUNIT# → ED 02:11 → MS2 06:10
PROVIDERS: ADMIT Internal Medicine; ATTEND Nurse Practitioner
PROC: 0FT44ZZ Resection of Gallbladder, Percutaneous Endoscopic Approach (ICD-10-PCS; principal; 2018-05-10 11:30)
DX: K80.00 Calculus of gallbladder with acute cholecystitis without obstruction (principal); K85.10 Biliary acute pancreatitis without necrosis or infection; K85.90 Acute pancreatitis without necrosis or infection, unspecified; K82.8 Other specified diseases of gallbladder; E80.6 Other disorders of bilirubin metabolism; E78.00 Pure hypercholesterolemia, unspecified; E87.6 Hypokalemia; E78.5 Hyperlipidemia, unspecified; R00.0 Tachycardia, unspecified; R73.9 Hyperglycemia, unspecified; K21.9 Gastro-esophageal reflux disease without esophagitis; Z85.51 Personal history of malignant neoplasm of bladder; Z85.828 Personal history of other malignant neoplasm of skin; Z79.899 Other long term (current) drug therapy
CPT/HCPCS: 36415; 71045; 74177; 74181; 76705; 76770; 80053; 80061; 81001; 81003; 82150; 83036; 83605; 83615; 83690; 83721; 83735; 84100; 85025; 85610; 87040; 87070; 87077; 87086; 87181; 87205; 96361; 96374; 96375; 96376; 99283; 99284

== ENCOUNTER 2021-05-05 08:00 | Outpatient (CLI) | payer OTHER, MEDICARE ==
--- NOTE | 2021-05-05 16:37 | XRAY Report ---
PROCEDURE: Foot 2 View LT INDICATIONS: PAIN IN LEFT FOOT TECHNIQUE: 2 views of the foot were acquired. COMPARISON: None. FINDINGS: BONES: No acute, displaced fracture or dislocation. Diffuse osteopenia. Flexion of the second through fifth DIPs, possibly positional. SOFT TISSUES: No focal abnormality. IMPRESSION: 1.No acute osseous abnormality. Reviewed by: Po Shay MD on 05/05/2021 4:35 PM PDT Approved by: Po Shay MD on 05/05/2021 4:35 PM PDT Station ID: [id number]
== END 2021-05-05 23:59 | disposition home or self-care (01) ==
LOC: DI.S 08:00
PROVIDERS: ATTEND Nurse Practitioner
DX: M79.672 Pain in left foot (principal)

== ENCOUNTER 2022-11-03 08:00 | Outpatient (CLI) | payer MEDICARE, OTHER ==
--- NOTE | 2022-11-03 12:15 | XRAY Report ---
PROCEDURE: Knee 4 View LT INDICATIONS: LEFT KNEE EFFUSION TECHNIQUE: 4 views of the left knee(s) were acquired. COMPARISON: None. FINDINGS: Bones: No fractures or dislocations. No suspicious bony lesions. Definite osteophytes and possibl e narrowing of joint space. This is tricompartmental. Soft tissues: Mild knee joint effusion. No suspicious soft tissue calcifications or masses. Chondro calcinosis. IMPRESSION: No acute bony abnormality. 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 Chondrocalcinosis, which could be age-related, associated with CPPD or parathyroid disorder. Reviewed by: Sebastian Malloy on 11/03/2022 12:14 PM PDT Approved by: Sebastian Malloy on 11/03/2022 12:14 PM PDT Station ID: [id number]
== END 2022-11-03 23:59 | disposition home or self-care (01) ==
LOC: DI.S 08:00
PROVIDERS: ATTEND Physician Assistant
DX: M17.12 Unilateral primary osteoarthritis, left knee (principal); M11.262 Other chondrocalcinosis, left knee